=== PATIENT | female | born 1940 | race Caucasian/White ===

== ENCOUNTER 2018-11-12 09:42 | Outpatient (CLI) | payer MEDICARE ==
--- NOTE | 2018-11-14 10:14 | MMO ---
Bilateral MAMMO Bilat Screen [facility]. CLINICAL HISTORY: Patient is 78 years old and is seen for screening. The patient has no family history of breast cancer. The patient has no personal history of cancer. VIEWS: The views performed were: bilateral craniocaudal with tomosynthesis and bilateral mediolateral oblique with tomosynthesis. FILMS COMPARED: The present examination has been compared to prior imaging studies performed at [facility] on 02/19/2013 and 03/17/2013. MAMMOGRAM FINDINGS: There are scattered fibroglandular densities. There are stable benign appearing calcifications seen in both breasts. There are also vascular calcifications. There are no suspicious masses, suspicious calcifications, or new areas of architectural distortion. IMPRESSION: THERE IS NO MAMMOGRAPHIC EVIDENCE OF MALIGNANCY. A ROUTINE FOLLOW-UP MAMMOGRAM IN 1 YEAR IS RECOMMENDED. THE RESULTS OF THIS EXAM WERE SENT TO THE PATIENT. ACR BI-RADS Category 2 - Benign finding MAMMOGRAPHY NOTE: 1. A negative mammogram report should not delay a biopsy if a dominant of clinically suspicious mass is present. 2. Approximately 10% to 15% of breast cancers are not detected by mammography. 3. Adenosis and dense breasts may obscure an underlying neoplasm. Reported by: BENI BENAVIDES MD Electonically Signed: [id number]
== END 2018-11-12 09:43 | disposition home or self-care (01) ==
LOC: BICMAMMO 09:42
PROVIDERS: ATTEND Family Medicine
DX: Z12.31 Encounter for screening mammogram for malignant neoplasm of breast (principal)
CPT/HCPCS: 77063; 77067

== ENCOUNTER 2019-03-13 09:45 | Observation (INO) | payer MEDICARE ==
--- NOTE | 2019-03-13 10:24 | RAD ---
Portable chest: HISTORY: Dyspnea COMPARISON: 07/23/2016 FINDINGS:Heart size upper normal and stable. Aortic calcification is prominent. Vascular and intersti tial markings are upper normal. No focal infiltrate. No effusion. Calcified granuloma in the left lower lung again noted. IMPRESSION:Mild vascular and interstitial engorgement. No focal infiltrate.
[2019-03-13 10:38] LABS: #Eosinphils 0.1 thou/uL (0.0-0.7); #Lymphocytes 1.8 thou/uL (1.20-3.40); #Monocytes 0.5 thou/uL (0.11-0.59); #Neutrophils 3.6 thou/uL (1.40-6.50); %Basophils 0.4 % (0.0-1.0); %Eosinophils 1.3 % (0.0-10.0); %Lymphocytes 29.9 % (21.0-51.0); %Monocytes 8.2 % (0.0-10.0); %Neutrophils 60.2 % (42.0-75.0); Hemoglobin 13.4 g/dL (12.0-16.0); Mean Corpuscular HGB CONC 34.1 g/dL (32.0-36.0); Mean Corpuscular Hemoglobin 28.6 pg (27.0-31.0); Mean Corpuscular Volume 83.9 fL (78.0-98.0); Mean Platelet Volume 8.5 fL (7.4-10.4); Platelet Count 185 thou/uL (130-400); RBC Distribution Width 12.7 % (11.5-14.5); Red Blood Cell (RBC) Count 4.67 mill/uL (4.20-5.40); White Blood Cell (WBC) Count 5.9 thou/uL (4.8-10.8)
[2019-03-13 11:00] LABS: ALT (SGPT) 16 U/L (8-55); AST (SGOT) 21 U/L (5-34); Albumin 4.3 g/dL (3.4-4.8); Alkaline Phosphatase 62 U/L (40-110); Anion Gap 11 mmol/L (10-20); BUN (Urea Nitrogen) 14 mg/dL (9.8-20.1); Bilirubin, Total 0.4 mg/dL (0.2-1.2); CK (CPK) 68 U/L (29-168); Calc. Creatinine Clearance 0 mL/min (70-130); Calcium 9.7 mg/dL (7.8-10.44); Carbon Dioxide 29 mmol/L (23-31); Chloride 101 mmol/L (98-107); Estimated GFR-MDRD 79; Globulin 2.4 g/dL (2.4-3.5); Glucose 102 mg/dL (83-110); Potassium 3.4 mmol/L (3.5-5.1); Protein, Total 6.7 g/dL (6.0-8.3); Sodium 138 mmol/L (136-145)
--- NOTE | 2019-03-13 11:01 | CT ---
CTA chest with contrast: Multiple axial tomograms obtained through the chest following a pulmonary angiogram protocol with mul tiplanar reconstruction and 3-D postprocessing. INDICATIONS: Dyspnea and chest pain. Assess for pulmonary embolus. COMPARISON: None FINDINGS: Pulmonary arteries show adequate opacification. No evidence of pulmonary embolus identified. Thoracic aorta is not opacified and cannot be assessed for dissection. Atherosclerotic changes are no remigio. Mediastinum appears unremarkable. No adenopathy. Calcified left hilar lymph nodes. Lung garcia appear clear. No evidence of infiltrate or effusion. Scattered calcified nodules in the l eft lung. Images through the upper abdomen appear unremarkable. Soft tissues of the thorax appear unremarkable. Osseous structures of the thorax appear unremarkable. IMPRESSION: 1. No evidence of pulmonary embolus 2. No acute lung process.
[2019-03-13] MEDS ORDERED: Iopamidol 370 76% 100 ML VIAL ONE (12:09)
[2019-03-13 12:23] LABS: Bilirubin Negative (Negative); Blood, Urine Negative (Negative); Clarity Clear (Clear); Glucose, Urine (Dipstick) Normal (Negative); Leukocyte Negative Leu/uL (Negative); Nitrite Negative (Negative); Protein, Urine (Dipstick) Negative (Neg-Trace); Urobilinogen Normal mg/dL (Less than 2)
[2019-03-13] MEDS ORDERED: Nitroglycerin 0.4 MG TAB 1 EACH ONE (13:00)
--- NOTE | 2019-03-13 13:32 | HP ---
HISTORY OF PRESENT ILLNESS: Ms. Whitaker is an 78-year-old woman. She came to this facility earlier today with complaint of shortness of breath and chest pain, retrosternal, which radiates to her back. It is not associated with exertion. It is worse when she takes a deep inspiration. She is being admitted for evaluation and management. She denies any associated fever. She denies any coughing. PAST MEDICAL HISTORY: Remarkable for hypertension. She denies diabetes. She claims that she has some "irregular heartbeat." No other significant past medical history. Also, she has a history of chronic back ache. PAST SURGICAL HISTORY: Remarkable for hysterectomy, cholecystectomy, appendectomy, and bilateral cataract extraction. ALLERGIES: SHE DOES NOT HAVE ANY KNOWN ALLERGY. SOCIAL HISTORY: She smoked last time more than 50 years ago and she said that she was never a heavy smoker. She denies EtOH abuse. She denies substance abuse. FAMILY HISTORY: Reviewed and is not contributory. MEDICATIONS: At home, she was on; 1. Tylenol. 2. Amlodipine/valsartan. 3. Dexlansoprazole, which is Dexilant. 4. Diphenhydramine. 5. Fentanyl patch. 6. Hydrochlorothiazide. 7. Naproxen. REVIEW OF SYSTEMS: CONSTITUTIONAL: She denies any fever. Denies any weakness. HEENT: No headache. No ocular pain. No sore throat. No rhinorrhea. No earache. No epistaxis. NECK: No neck pain. No neck stiffness. CARDIOVASCULAR: Admit to shortness of breath. Chest pain as we mentioned earlier. PULMONARY: No coughing. GASTROINTESTINAL: No nausea. No vomiting. No diarrhea. No abdominal pain. GENITOURINARY: No dysuria. No hematuria. ENDOCRINOLOGY: No heat or cold intolerance. No polyuria, polydipsia, or polyphagia. MUSCULOSKELETAL: She has history of chronic back ache as we mentioned earlier. HEMATOLOGY: No abnormal bleeding. No ecchymosis. LYMPHATIC: No palpable lymphadenopathy. No painful lymphadenopathy. SKIN: No rash. No itching. ALLERGY: No hay fever. NEUROLOGICAL: No seizure. PSYCHIATRIC: She denies anxiety. Denies depression. PHYSICAL EXAMINATION: GENERAL: At the current time, she is alert, oriented, in no distress. VITAL SIGNS: Her latest vital signs show a temperature of 98.2, pulse rate 60, respiratory rate 20, and blood pressure 175/95. HEENT: Her head is normocephalic and atraumatic. Both her pupils are equal and reactive. Ears and nose, normal. Oral mucosa is moist. Pharyngeal area is clear. NECK: Supple. There is no distention of the jugular vein. No lymphadenopathy felt. Thyroid gland not palpable. There is no carotid bruit. CHEST: Symmetrical with regular S1 and S2. LUNGS: Clear. ABDOMEN: Soft. Bowel sounds heard. We could not appreciate any organomegaly. EXTREMITIES: Limbs show no edema. NEUROLOGIC: She moves all extremities. LABORATORY DATA: Her chemistry and lytes done today shows a sodium of 138, potassium 3.4, chloride 101, CO2 of 29, BUN 14, creatinine 0.71, glucose 102, calcium 9.7, total bilirubin 0.4, AST 21, ALT 16, alkaline phosphatase 62, CPK 68. Troponin 0.028, BNP 25.2, total protein 6.7, and albumin 4.3. CBC showed WBC of 5.9, hemoglobin of 13.4, hematocrit of 39.2, MCV of 83.9, and platelet of 185. Urinalysis is essentially normal with a pH of 7.5, specific gravity of 1.004. IMAGING DATA: Chest x-ray was reported to show mild vascular interstitial engorgement. No focal infiltrate. Heart size in the upper limit of normal. If there is also aortic calcification, CT angiogram of the chest was reported to show no acute lung process. No evidence of pulmonary embolism. ASSESSMENT AND PLAN: This is an 78-year-old woman with history of hypertension, who was admitted with shortness of breath and chest pain. EKG shows no acute abnormality. At this time, we will rule out myocardial infarction. We will put a consult for Cardiology. CO protocol is initiated. The patient will be admitted to telemetry for further evaluation and management will depend on the course of her hospitalization and her response to therapy. Job ID: [id number]
[2019-03-13] MEDS ORDERED: Acetaminophen 325 MG TAB PO PRN (14:07)
[2019-03-13] MEDS ORDERED: Ondansetron PF 4 MG/2 ML Vial IVP PRN (14:07)
[2019-03-13] MEDS ORDERED: Ondansetron ODT 4 MG TAB SL PRN (14:07)
[2019-03-13] MEDS ORDERED: Morphine 2 MG/ML SYRINGE SLOW IVP PRN (14:08)
[2019-03-13 14:12] VITALS: BMI 23.5
[2019-03-13] MEDS ORDERED: Nitroglycerin 0.4 MG TAB (25 Tab Bottle) SL PRN (14:14)
[2019-03-13] MEDS ORDERED: Aspirin Chewable 81 MG TAB PO SCH (14:15)
[2019-03-13 15:10] LABS: Free T4 (Free Thyroxine) 1.08 ng/dL (0.70-1.48); Thyroid Stimulating Hormone 1.3083 uIU/mL (0.35-4.94)
[2019-03-13 17:00] LABS: Troponin I Less than 0.010 ng/mL (< 0.028)
[2019-03-13] MEDS ORDERED: Amlodipine 5 MG TAB PO SCH (20:15)
[2019-03-13] MEDS ORDERED: Valsartan 80 MG TAB PO SCH (20:15)
[2019-03-13] MEDS: Atorvastatin Calcium 40 MG TAB PO SCH (20:38)
[2019-03-13] MEDS: Metoprolol Tartrate 25 MG TAB PO SCH (20:39)
[2019-03-13] MEDS: Temazepam 15 MG CAP PO PRN (20:40)
[2019-03-14] MEDS ORDERED: Aspirin 300 MG Suppository PR SCH (09:00)
[2019-03-14] MEDS: Amlodipine 5 MG TAB PO SCH ×2 (11:00→20:25)
[2019-03-14] MEDS: Metoprolol Tartrate 25 MG TAB PO SCH ×2 (11:01→20:11)
[2019-03-14] MEDS: Hydrochlorothiazide 25 MG TAB PO SCH (11:01)
[2019-03-14] MEDS: Enoxaparin Sodium 40 MG/0.4 ML SYRINGE SC SCH (11:01)
[2019-03-14] MEDS: Valsartan 80 MG TAB PO SCH ×2 (11:01→20:24)
--- NOTE | 2019-03-14 13:22 | NM ---
MYOCARDIAL PERFUSION EVALUATION: INDICATION: History of chest pain. RADIOPHARMACEUTICAL: 10.10 mCi Technetium 99m sestamibi IV with rest and 29.3 mCi Technetium 99m sestamibi IV with stress. FINDINGS: There is a predominantly fixed small defect involving the left ventricular apex on both the rest and stress images likely related to overlying osseous attenuation. There was normal wall motion and thic kening. The estimated LVEF is 82%. IMPRESSION: Probably normal myocardial perfusion evaluation. 1. There is a small predominantly fixed defect involving the left ventricular apex likely related to overlying soft tissue attenuation. 2. The estimated left ventricular ejection fraction of 82%. POS: CET
--- NOTE | 2019-03-14 14:30 | PDOC.HOSPP ---
- Subjective Encounter Date: 03/14/19 Encounter Time: 14:28 Subjective: +SOB & CP are less severe.. - Objective Vital Signs & Weight: Vital Signs (12 hours) Temp Pulse Resp BP Pulse Ox 03/14/19 12:45 98.2 F 61 16 174/75 H 99 03/14/19 07:42 97.6 F 55 L 15 143/65 H 99 03/14/19 04:05 97.2 F L 64 16 105/53 L 99 Weight Weight 123 lb 3.2 oz I&O: 03/13/19 03/14/19 03/15/19 06:59 06:59 06:59 Intake Total 740 Output Total 1000 Balance -260 Result Diagrams: 03/13/19 10:27 03/13/19 10:27 Hospitalist ROS - Medication Medications: Active Medications Generic Name Dose Route Start Last Admin Trade Name Freq PRN Reason Stop Dose Admin Amlodipine Besylate 5 mg 03/14/19 09:00 03/14/19 11:00 Norvasc PO Not Given DAILY [facility] Aspirin 300 mg 03/14/19 09:00 03/14/19 11:01 Aspirin WA Not Given DAILY DANA Atorvastatin Calcium 40 mg 03/13/19 21:00 03/13/19 20:38 Lipitor PO 40 mg HS DANA Administration Enoxaparin Sodium 40 mg 03/14/19 09:00 03/14/19 11:01 Lovenox SC Not Given 0900 DANA Hydrochlorothiazide 25 mg 03/14/19 09:00 03/14/19 11:01 Hydrochlorothiazide PO Not Given DAILY [facility] Metoprolol Tartrate 12.5 mg 03/13/19 21:00 03/14/19 11:01 Lopressor PO Not Given BID DANA Temazepam 15 mg 03/13/19 20:03 03/13/19 20:40 Restoril PO 15 mg HSPRN PRN Administration Insomnia Valsartan 160 mg 03/14/19 09:00 03/14/19 11:01 Diovan PO Not Given DAILY [facility] - Exam Neck: no JVD Heart: RRR Respiratory: CTAB Gastrointestinal: soft Extremities: no edema Neurological: no weakness Psychiatric: normal affect, A&O x 3 Hosp A/P (1) Shortness of breath Code(s): R06.02 - SHORTNESS OF BREATH Status: Acute (2) Chest pain Code(s): R07.9 - CHEST PAIN, UNSPECIFIED Status: Acute (3) HTN (hypertension) Code(s): I10 - ESSENTIAL (PRIMARY) HYPERTENSION Status: Acute - Plan Cardiac enzymes reviewed. Stress test shows fixed apical defect. CT angio negative.. Check echo.
[2019-03-14] MEDS: Famotidine 20 MG TAB PO SCH (14:43)
[2019-03-14] MEDS ORDERED: ADENOSINE 60 MG/20 ML VIAL ONE (15:55)
[2019-03-14] MEDS ORDERED: Lidocaine 2% Viscous Solution 10 ML, Aluminum & Magnesium Hydroxide 30 ML SSW PRN (19:46)
[2019-03-14] MEDS: Atorvastatin Calcium 40 MG TAB PO SCH (20:25)
[2019-03-14] MEDS: Temazepam 15 MG CAP PO PRN (20:27)
[2019-03-15 08:34] VITALS: BP 148/67; TEMP 97.8
[2019-03-15] MEDS ORDERED: Aspirin 325 MG TAB PO SCH (09:00)
[2019-03-15] MEDS: Metoprolol Tartrate 25 MG TAB PO SCH (09:31)
[2019-03-15] MEDS: Hydrochlorothiazide 25 MG TAB PO SCH (09:31)
[2019-03-15] MEDS: Famotidine 20 MG TAB PO SCH (09:31)
[2019-03-15] MEDS: Enoxaparin Sodium 40 MG/0.4 ML SYRINGE SC SCH ×2 (09:32→09:39)
--- NOTE | 2019-03-15 16:16 | DIS ---
DATE OF ADMISSION: 03/13/2019 DATE OF DISCHARGE: 03/15/2019 PRIMARY CARE PROVIDER: Reggie Moncada MD DISPOSITION: Discharged home. FINAL DIAGNOSES: Pleuritis, pleurisy, hypertension, and shortness of breath. DISCHARGE MEDICATIONS: 1. Ambien 5 mg at bedtime. 2. Nucynta 50 mg a day. 3. Dexilant 60 mg a day. 4. Amlodipine/valsartan 5/160 one daily. 5. Hydrochlorothiazide 25 mg a day. ALLERGIES: LYRICA. DIET: Heart healthy. CODE STATUS: Full. PENDING AT TIME OF DISCHARGE: Nothing. HOSPITAL COURSE: The patient admitted with pleuritic chest pain, shortness of breath. EKG was unrevealing for acute ST-T abnormality. CT angiogram revealed no pulmonary embolism. Admitting laboratory; CBC was normal. Comprehensive metabolic profile was normal except for a potassium of 3, 4. Cardiac enzymes were normal x3. BNP was 25. Nuclear medicine stress test revealed a fixed defect, thought to be due to body habitus. No reversibility. EF estimated at 82% and I examined the patient today, she was pain-free. Vital signs were stable. Cardiorespiratory exam was normal. She is discharged to home on home medicines. She has been asked to see her PCP in followup in 7 days. Job ID: [id number]
[2019-03-15] MEDS ORDERED: Zolpidem Tartrate 5 MG TAB PO SCH (21:00)
[2019-03-15] MEDS ORDERED: Amlodipine 5 MG TAB PO SCH (21:00)
[2019-03-15] MEDS ORDERED: Valsartan 80 MG TAB PO SCH (21:00)
[2019-03-16] MEDS ORDERED: TAPENTADOL HCL 50 MG PO SCH (09:00)
== END 2019-03-15 12:28 | disposition home or self-care (01) ==
LOC: ERS 09:45 → 2SW 14:03
PROVIDERS: ADMIT Hospitalist; ATTEND Hospitalist
DX: R09.1 Pleurisy (principal); R06.02 Shortness of breath; I10 Essential (primary) hypertension; E78.00 Pure hypercholesterolemia, unspecified; E78.5 Hyperlipidemia, unspecified; G89.29 Other chronic pain; M54.9 Dorsalgia, unspecified; Z79.899 Other long term (current) drug therapy; Z87.891 Personal history of nicotine dependence; Z88.8 Allergy status to other drugs, medicaments and biological substances
CPT/HCPCS: 71045; 71275; 78452; 81003; 82550; 83880; 84439; 84484 ×2; 87804 ×2; 93005; 93017; 93306; 94760; 96372; 99285; A9500; G0378 ×3; 36415; 80053; 84443; 85025; J0153; J1650; Q9967

== ENCOUNTER 2019-08-09 11:19 | Inpatient (IN) | payer MEDICARE, OTHER ==
[~2019-08-09 11:19] MED LIST: Heparin 10,000 UNITS/ 10 ML VIAL ONE; Iopamidol 370 76% 100 ML VIAL ONE; Nitroglycerin 0.4 MG TAB (25 Tab Bottle) ONE
[2019-08-09 11:46] LABS: #Basophils 0.1 thou/uL (0.0-0.2); #Eosinphils 0.1 thou/uL (0.0-0.7); %Basophils 0.5 % (0.0-1.0); %Eosinophils 0.5 % (0.0-10.0); %Lymphocytes 16.1 % (21.0-51.0); %Monocytes 8.2 % (0.0-10.0); %Neutrophils 74.7 % (42.0-75.0); Mean Corpuscular HGB CONC 33.2 g/dL (32.0-36.0); Mean Corpuscular Hemoglobin 28.8 pg (27.0-31.0); Mean Corpuscular Volume 86.8 fL (78.0-98.0); Mean Platelet Volume 8.3 fL (7.4-10.4); Platelet Count 194 thou/uL (130-400); RBC Distribution Width 13.1 % (11.5-14.5); Red Blood Cell (RBC) Count 5.19 mill/uL (4.20-5.40); White Blood Cell (WBC) Count 12.1 thou/uL (4.8-10.8)
[2019-08-09 12:09] LABS: ALT (SGPT) 33 U/L (8-55); AST (SGOT) 155 U/L (5-34); Albumin 4.3 g/dL (3.4-4.8); Alkaline Phosphatase 64 U/L (40-110); Anion Gap 14 mmol/L (10-20); BUN (Urea Nitrogen) 12 mg/dL (9.8-20.1); Bilirubin, Total 0.4 mg/dL (0.2-1.2); Calc. Creatinine Clearance 0 mL/min (70-130); Calcium 9.8 mg/dL (7.8-10.44); Carbon Dioxide 28 mmol/L (23-31); Chloride 98 mmol/L (98-107); Estimated GFR-MDRD 81; Globulin 2.8 g/dL (2.4-3.5); Glucose 109 mg/dL (83-110); Potassium 3.2 mmol/L (3.5-5.1); Protein, Total 7.1 g/dL (6.0-8.3); Sodium 137 mmol/L (136-145)
--- NOTE | 2019-08-09 12:32 | RAD ---
PORTABLE CHEST: HISTORY: Chest pain that started last night. COMPARISON: 03/13/2019 study. FINDINGS: Heart size is within normal limits. There are arthrosclerotic changes of the aorta. The bones appea r demineralized. IMPRESSION: No active intrathoracic disease. POS: ROXANA
[2019-08-09] MEDS ORDERED: Heparin 10,000 UNITS/1 ML VIAL ONE (12:33)
[2019-08-09] MEDS ORDERED: Verapamil 5 MG/2 ML VIAL ONE (12:33)
[2019-08-09] MEDS ORDERED: Nitroglycerin 100MG/250ML BOT 250 ML ONE (12:33)
[2019-08-09 12:36] LABS: CKMB 163.7 ng/mL (0-6.6)
[2019-08-09] MEDS ORDERED: Morphine 2 MG/ML SYRINGE ONE (12:41)
[2019-08-09] MEDS ORDERED: Midazolam HCl 2 mg/2 ml Vial ONE (12:42)
[2019-08-09] MEDS ORDERED: Acetaminophen/Codeine 30-300mg Tablet PO PRN ×2 (13:37)
[2019-08-09] MEDS ORDERED: Sodium Chloride 0.9% 200 ML IV PRN (13:37)
[2019-08-09] MEDS ORDERED: Nitroglycerin 0.4 MG TAB (25 Tab Bottle) SL PRN (13:37)
[2019-08-09] MEDS ORDERED: Nitroglycerin 50 MG/250 ML BOT 250 ML IVPB SCH (13:45)
[2019-08-09] MEDS ORDERED: Heparin 10,000 UNITS/ 10 ML VIAL SLOW IVP SCH (13:45)
[2019-08-09] MEDS ORDERED: Heparin 25,000 units/D5W 500 ML IVPB SCH (13:45)
[2019-08-09] MEDS: Morphine 2 MG/ML SYRINGE SLOW IVP PRN ×3 (14:05→23:36)
[2019-08-09 14:11] LABS: Hemoglobin 14.1 g/dL (12.0-16.0); Platelet Count 176 thou/uL (130-400)
[2019-08-09 14:32] LABS: PTT 212.1 SEC (22.9-36.1)
[2019-08-09 14:36] LABS: Troponin I 23.793 ng/mL (< 0.028)
[2019-08-09] MEDS ORDERED: [UNRECOGNIZED DRUG - REMARK] FS SCH (14:47)
[2019-08-09] MEDS: ALPRAZolam 0.25 MG TAB PO PRN ×2 (15:08→20:21)
[2019-08-09 17:26] LABS: Critical Call Chem Troponin I RESULT DECREASING; Troponin I 22.121 ng/mL (< 0.028)
--- NOTE | 2019-08-09 19:40 | HP ---
INDICATION FOR ADMISSION: Acute inferior myocardial infarction. HISTORY OF PRESENT ILLNESS: This very pleasant 78-year-old female was seen back in February 2019 complaining of chest pain. She had negative enzymes at that time. She underwent stress testing, was found to have no evidence of ischemia on a stress test and she was advised to be seen just as needed on outpatient basis. 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 She did see Dr. Jackson and underwent cardiac catheterization many years ago and was found to have normal coronary arteries at least according to the patient. She has been doing well, but then yesterday evening, she had had some ice cream and some chocolate and noticed that she was starting to get some anterior chest pain, which radiates somewhat to the right side, that went down the left arm. She has some abdominal discomfort. She has some nausea, but no vomiting. She had no diaphoresis. She describes her pain at the worst of being 7/10. She comes to the emergency room, still having chest pain 6/10. EKG does show some slight irregularities with some mild ST-segment elevation in the inferior leads with some nonspecific ST-segment changes. She continues to have some chest discomfort. She has been given 3000 units of heparin. She was given nitroglycerin and she still continues to have some discomfort. Her cardiac enzymes are positive for myocardial infarction. Her troponin I is 21, and I have advised her that most likely she will best be served by undergoing a cardiac catheterization to evaluate the coronary artery status as soon as possible. Her troponin I is 21.1. BNP was only 317. Her other laboratory data did not show any gross abnormalities. WBC is 12.1 with a hemoglobin of 15. PAST MEDICAL HISTORY: Significant for hypertension. She has had some occasional palpitations in the past. This is one of the reason she underwent cardiac catheterization by Dr. Jackson, but this has been stable. She has chronic back pain. She takes medication. She has had a hysterectomy, cholecystectomy, appendectomy, bilateral cataract surgery. ALLERGIES: SHE SAYS SHE IS ALLERGIC TO LYRICA. MEDICATIONS: 1. Tylenol. 2. Amlodipine/valsartan. 3. Dexilant. 4. Diphenhydramine. 5. Fentanyl patch for back pain. 6. Hydrochlorothiazide. 7. Naprosyn. REVIEW OF SYSTEMS: A 12-point review of systems is positive for chronic back pain. She also has occasional diarrhea, for which she sees Dr. Del Real I believe. Otherwise, review of systems is relatively unremarkable. PHYSICAL EXAMINATION: GENERAL: Reveals an elderly female, who is in no acute distress, but does appear to be uncomfortable, still complains of some chest discomfort. VITAL SIGNS: Her blood pressure is 156/82, heart rate is 57 and shows a sinus rhythm, respiratory rate is 15, and O2 saturation is 100%. HEENT: Shows the head to be normocephalic and atraumatic. Carotid pulses are present. There are no bruits. CHEST: Her chest is actually clear to auscultation without rales, rhonchi or wheezing. CARDIOVASCULAR: Regular rate and rhythm. She has normal S1 and S2. I do not hear any significant S3 or S4. There were no significant murmurs, heaves, thrills, bruits or rubs. ABDOMEN: Soft and nontender. Positive bowel sounds are present. She did have some lateral chest wall tenderness over the area where she is having some chest pain. This is painful to palpation. EXTREMITIES: No clubbing, cyanosis or edema. All pulses are present, pedal as well as brachial and radial. NEUROLOGIC: She appears to be grossly intact. There were no gross focal motor deficits. SKIN: Warm and dry. DIAGNOSTIC STUDIES: EKG shows a sinus rhythm with evidence of slight ST-segment elevation in the inferior leads, but with the abnormality in the cardiac enzymes, it appears that she is having an inferior myocardial infarction which may have started yesterday p.m. I have advised her that she needs to undergo a cardiac catheterization. I have explained to her the procedure and the risks to include bleeding, infection, possibility of myocardial infarction, CVA, renal insufficiency, allergic contrast reaction, and even the possibility of . She understands and agrees to proceed. We will plan for emergent cardiac catheterization. She has no history of recent fevers, congestion or any contact with COVID patients that she is aware of. Job ID: [id number]
[2019-08-09] MEDS: Metoprolol Tartrate 25 MG TAB PO SCH (20:14)
[2019-08-09] MEDS ORDERED: Atorvastatin Calcium 40 MG TAB PO SCH (21:00)
--- NOTE | 2019-08-09 21:52 | CON ---
DATE OF CONSULTATION: HISTORY OF PRESENT ILLNESS: This is an 78-year-old female, who lives at [facility], being with a daughter who lives in the [place] area. She developed chest pain that radiated into her left arm about 6:00 p.m. yesterday, which is almost 20 hours ago and has persisted throughout the night such that she was unable to sleep. She called the [facility] nurse practitioner, who recommended an ambulance and the patient came here about 11 o'clock, where she was found to have a troponin of 21 with a CPK-MB of 163. Her EKG showed some EKG changes suggesting an inferior injury and she was taken to the ship[facility] lab[facility]. Her right coronary artery had a large acute marginal that may actually go down in service, the inferior aspect of her heart. The main right coronary artery then tapered down to a very small branch and there was no collateral filling to any other distal vessel on the inferior surface of the heart. Left-sided injections revealed moderate LAD disease of about 50% or so and at least two areas including the origin and mid LAD, the circumflex consisted of 2 small branches with proximal stenosis, but neither appeared large enough to graft and there was a ramus branch with a significant proximal lesion that was not felt to be stentable. Left ventricular systolic function on the LV-gram appeared relatively good and cardiac echo is pending. She was not felt to be able to be stented in regard to the ramus due to its proximity to the left main and her right coronary artery was not specifically addressed. PAST MEDICAL HISTORY: Includes hypertension, well controlled per patient. She has no known elevated cholesterol level, no diabetes, mellitus and is a nonsmoker. REVIEW OF SYSTEMS: Significant for chronic back pain, followed by Dr. Tobar. She has had implant stimulator placed in her back. She has also had a previous cholecystectomy and hysterectomy. PHYSICAL EXAMINATION: GENERAL: On examination, she is alert, cooperative lady, 115 pounds, 5 feet 1 inch, somewhat anxious, but alert and cooperative. NECK: No carotid bruits (negative carotid ultrasound in the past). LUNGS: Clear to auscultation. CARDIAC: Regular rhythm at 73 with no ectopy at this time, although she did have ectopy during her cardiac catheterization. She has a blood pressure of 145 on IV heparin infusion. ABDOMEN: Soft and nontender. EXTREMITIES: She has palpable pedal pulses. PLAN: At this time is for coronary artery bypass grafting in the morning to the LAD, ramus, possibly something on the right and I have discussed this with the patient as well as with Krystal and informed consent has been obtained. Job ID: [id number]
[2019-08-10 04:30] LABS: Cardiac Risk 4.3 (Less than 4.5)
[2019-08-10] MEDS: Metoprolol Tartrate 25 MG TAB PO SCH (05:46)
[2019-08-10] MEDS ORDERED: Fentanyl 100 MCG/2 ML VIAL ONE (06:33)
[2019-08-10] MEDS ORDERED: Midazolam HCl 5 mg/5 ml Vial ONE (06:33)
[2019-08-10] MEDS ORDERED: Midazolam HCl 2 mg/2 ml Vial ONE (06:33)
[2019-08-10] MEDS ORDERED: Vecuronium 10 MG VIAL ONE ×2 (06:33→10:15)
[2019-08-10] MEDS ORDERED: Dexmedetomidine 200 MCG/2 ML VIAL ONE (06:33)
[2019-08-10] MEDS ORDERED: Albumin 5% 500 ML ONE ×2 (06:34→11:30)
[2019-08-10] MEDS ORDERED: Heparin 10,000 UNITS/1 ML VIAL 30,000 UNITS in Sodium Chloride 0.9% 1,000 ML FS SCH (06:45)
[2019-08-10] MEDS ORDERED: PHENYLEPHRINE-NS 100 MCG/ML 10 ML SYRINGE ONE ×2 (08:49→10:15)
[2019-08-10] MEDS ORDERED: EPINEPHrine 1 MG/10 ML Abboject SYRINGE ONE (09:24)
[2019-08-10] MEDS ORDERED: Atropine Sulfate 1 mg/10 ml Syringe ONE (09:24)
[2019-08-10] MEDS ORDERED: Sodium Bicarb 50 MEQ/50 ML Abboject 8.4% SYRINGE ONE ×3 (09:24→10:15)
[2019-08-10] MEDS ORDERED: CEFAZOLIN 1 GM VIAL ONE (09:53)
[2019-08-10] MEDS ORDERED: Ondansetron PF 4 MG/2 ML Vial ONE (10:15)
[2019-08-10] MEDS ORDERED: Cardioplegic Soln 1,000 ML BAG ONE (10:15)
[2019-08-10] MEDS ORDERED: Glycopyrrolate 0.2 MG/ML 5 ML SYRINGE ONE (10:15)
[2019-08-10] MEDS ORDERED: Magnesium Sulfate 1 GM/2 ML VIAL ONE ×2 (10:15)
[2019-08-10] MEDS ORDERED: Thrombin 5000 UNITS/5 ML VIAL ONE (10:15)
[2019-08-10] MEDS ORDERED: PROPOFOL 200 MG/20 ML VIAL ONE (10:15)
[2019-08-10] MEDS ORDERED: Protamine Sulfate 50 MG/5 ML VIAL ONE (10:15)
[2019-08-10] MEDS ORDERED: Calcium Chloride 1 GM/10 ML Abboject SYRINGE ONE (10:15)
[2019-08-10] MEDS ORDERED: Lidocaine 2% PF 5 ML VIAL ONE ×2 (10:15)
[2019-08-10] MEDS ORDERED: Heparin 30,000 units/30 ml VIAL ONE ×2 (10:15)
[2019-08-10] MEDS ORDERED: Rocuronium Bromide 10 MG/ML (10ML VIAL) ONE (10:15)
[2019-08-10] MEDS ORDERED: Papaverine 60 MG/2 ML VIAL ONE (10:15)
[2019-08-10] MEDS ORDERED: EPHEDRINE 25 MG/5 ML SYRINGE ONE (10:15)
[2019-08-10] MEDS ORDERED: Potassium Chloride 60 MEQ/30 ML VIAL ONE ×2 (10:15)
[2019-08-10] MEDS ORDERED: Lidocaine 1% PF 5 ML VIAL ONE ×2 (10:15)
[2019-08-10] MEDS ORDERED: Nitroglycerin 50 MG/250 ML BOT ONE (10:15)
[2019-08-10] MEDS ORDERED: Ketorolac Tromethamine 30 MG/ML VIAL ONE (10:15)
[2019-08-10] MEDS ORDERED: Aminocaproic Acid 5 GM/20 ML VIAL ONE ×2 (10:15)
[2019-08-10] MEDS ORDERED: Heparin 5,000 UNITS/ML VIAL ONE (10:15)
[2019-08-10] MEDS ORDERED: Dexamethasone 20 MG/5 ML VIAL ONE (10:15)
[2019-08-10] MEDS ORDERED: DOPamine 400 MG/D5W 250 ML 250 ML ONE (10:46)
[2019-08-10] MEDS ORDERED: Albumin 5% 250 ML ONE (10:52)
[2019-08-10] MEDS ORDERED: EPINEPHrine 1 MG, Admixture Fee 1 EACH in Dextrose 5% in Water 250 ML IVPB SCH (11:15)
[2019-08-10 11:20] LABS: Actual Bicarbonate (HCO3a) 19.9 mEq/L (22-28); Analyzer IN Cardio ER; Base Excess (BEa) -7.5 mEq/L (-2.0 to +3.0); CO2 Tension 48.6 mmHg (35.0-45.0); Calcium, Ionized 1.07 mmol/L (1.12-1.30); Carboxyhemoglobin (COHb) 0.3 gm% (0.0-3.0); O2 Tension (PaO2) 65.5 mmHg (> 60.0)
[2019-08-10 11:24] LABS: Puncture Site LINE; pH, Arterial 7.23 (7.35-7.45)
--- NOTE | 2019-08-10 11:30 | OP ---
DATE OF PROCEDURE: 08/10/2019 PREOPERATIVE DIAGNOSES: Coronary artery disease, status post myocardial infarction. PROCEDURES PERFORMED: Coronary artery bypass graft x2, left internal mammary artery to the LAD that was 2 mm saphenous vein graft, good quality to a 1.5 mm ramus branch. DENTAL LAB TECHNICIAN: Dr. Curiel. TRANSFUSION: None. DESCRIPTION OF PROCEDURE: After adequate anesthesia had been obtained, Dr. Curiel did an endovascular vein harvest of the left greater saphenous vein while I performed a median sternotomy. The right pleura was entered during sternotomy and the left pleura was entered during mammary artery harvest in one small area. After mammary harvesting, the patient was heparinized, mammary divided distally and passed posterior to the thymus gland. The pericardium was incised to minimize the distance to the LAD. Aorta and right atrium were cannulated. Cardiopulmonary bypass begun. The patient had moderate left ventricular hypertrophy. The right coronary system was examined and the distal right coronary artery that was occluded on catheterization was examined and felt to be too small a vessel to justify grafting with a completed infarct. The aorta was cross clamped and after 800 mL of [place] cardioplegic solution, the ramus was opened initially and an end-to-side anastomosis completed, passing a 1.5 mm probe proximally and distally prior to tying the suture line. Following this, the LAD was opened and the mammary artery anastomosed here. The cross-clamp was removed and a single proximal anastomosis performed on the aortic root and marked with a ring. The patient was then weaned from cardiopulmonary bypass. Cannula was removed and protamine was given systemically. Aortic cannulation site was secured with a 4-0 Prolene suture, following which the sternum was reapproximated over mediastinal and bilateral pleural drains using #7 interrupted wire. Vancomycin paste was used on the sternal edges, platelet rich blood and platelet poor plasma. Subcutaneous tissue and skin were closed in layers, and the patient is to be taken to the ICU in guarded condition. Job ID: [id number]
--- NOTE | 2019-08-10 11:36 | RAD ---
Chest one view HISTORY: Chest surgery. COMPARISON: 08/09/2019. FINDINGS: Cardiac silhouette is magnified by projection. Pulmonary vasculature upper limits of normal . Mediastinum is rotated leftward with the patient. There is calcification throughout the arterial stru ctures. Drains overlie the mediastinum. Bilateral thoracostomy tubes are directed towards the apices. Tip of a right subclavian central venous catheter overlies the right atrium. radiation monitor leads overlie the chest. No evidence of pneumothorax. Mild atelectasis at the lung bases, left greater than right. Defibrillator patches over the right chest and left upper abdomen. IMPRESSION : Interval postoperative changes of the mediastinum with lines and tubes as detailed above.
[2019-08-10] MEDS ORDERED: Bisacodyl 10 MG SUPP PR PRN (11:56)
[2019-08-10] MEDS ORDERED: Promethazine HCl 25 MG/ML VIAL IM PRN (11:56)
[2019-08-10] MEDS ORDERED: Nitroglycerin 50 MG/250 ML BOT 250 ML IVPB PRN (11:56)
[2019-08-10] MEDS ORDERED: Morphine 2 MG/ML SYRINGE SLOW IVP PRN (11:56)
[2019-08-10] MEDS ORDERED: Magnesium 2 GM/50 ML 2 GM in Premix Bag 1 BAG IVPB SCH (11:56)
[2019-08-10] MEDS ORDERED: Ondansetron PF 4 MG/2 ML Vial IVP PRN (11:56)
[2019-08-10] MEDS ORDERED: Fentanyl 100 MCG/2 ML VIAL SLOW IVP PRN ×2 (11:56)
[2019-08-10] MEDS ORDERED: Acetaminophen 325 MG TAB PO PRN (11:56)
[2019-08-10] MEDS ORDERED: Hetastarch 6% 500 ML 500 ML IVPB PRN (11:56)
[2019-08-10] MEDS ORDERED: niCARdipine 25 MG in Sodium Chloride 0.9% 250 ML 240 ML IVPB PRN (11:56)
[2019-08-10] MEDS ORDERED: Mag-Al 1200 mg/1200 mg/30 ML UDCUP PO PRN (11:56)
[2019-08-10] MEDS ORDERED: HYDROcodone/Acetaminophen 5/325 mg Tablet PO PRN (11:56)
[2019-08-10] MEDS ORDERED: DOPamine 400 MG/D5W 250 ML 250 ML IVPB PRN (11:56)
[2019-08-10] MEDS ORDERED: Post-Op Insulin Drip Protocol IVPB ONE (11:56)
[2019-08-10] MEDS ORDERED: Guaifenesin DM 100-10/5 ML UDCUP PO PRN (11:56)
[2019-08-10] MEDS ORDERED: Bisacodyl 5 MG TAB PO PRN (11:56)
[2019-08-10] MEDS ORDERED: Norepinephrine 8 MG/0.9% NS 250 ML IVPB PRN (11:56)
[2019-08-10] MEDS ORDERED: hydrALAZINE 20 MG/ML VIAL SLOW IVP PRN (11:56)
[2019-08-10] MEDS ORDERED: HUMULIN R 100 UNITS in Sodium Chloride 0.9% 100 ML IVPB SCH (12:12)
[2019-08-10] MEDS ORDERED: Dextrose 50% Abboject 50 ML SYRINGE SLOW IVP PRN (12:12)
[2019-08-10] MEDS ORDERED: Insulin Regular 300 UNITS/3 ML VIAL SC PRN (12:12)
[2019-08-10] MEDS ORDERED: Dextrose 5% in Water 1,000 ML IV PRN (12:12)
[2019-08-10 12:15] LABS: Red Blood Cell (RBC) Count 3.35 mill/uL (4.20-5.40); White Blood Cell (WBC) Count 14.8 thou/uL (4.8-10.8)
[2019-08-10 12:16] LABS: Hemoglobin 9.9 g/dL (12.0-16.0); Mean Corpuscular Hemoglobin 29.6 pg (27.0-31.0); Mean Corpuscular Volume 89.8 fL (78.0-98.0); Mean Platelet Volume 9.3 fL (7.4-10.4); Platelet Count 105 thou/uL (130-400); RBC Distribution Width 12.9 % (11.5-14.5)
[2019-08-10 12:17] LABS: #Eosinphils 0.1 thou/uL (0.0-0.7); #Monocytes 1.1 thou/uL (0.11-0.59); #Neutrophils 11.9 thou/uL (1.40-6.50); %Eosinophils 0.4 % (0.0-10.0); %Lymphocytes 11.7 % (21.0-51.0); %Monocytes 7.5 % (0.0-10.0); %Neutrophils 80.4 % (42.0-75.0); MDiff Complete? YES
[2019-08-10 12:33] LABS: INR-International Normal Ratio 1.5; PTT 40.2 SEC (22.9-36.1)
[2019-08-10 12:36] LABS: Elliptocytes SLIGHT = 2-5 cells (100X) (0-1/hpf); Platelet Morphology Comment Appears Decreased
[2019-08-10 12:37] LABS: BUN (Urea Nitrogen) 8 mg/dL (9.8-20.1); Calc. Creatinine Clearance 58 mL/min (70-130); Estimated GFR-MDRD 89
[2019-08-10 12:40] LABS: Anion Gap 10 mmol/L (10-20); Calcium 7.3 mg/dL (7.8-10.44); Carbon Dioxide 22 mmol/L (23-31); Chloride 107 mmol/L (98-107); Glucose 161 mg/dL (83-110); Potassium 2.9 mmol/L (3.5-5.1); Sodium 136 mmol/L (136-145)
[2019-08-10 13:10] LABS: Actual Bicarbonate (HCO3a) 15.1 mEq/L (22-28); Base Excess (BEa) -8.8 mEq/L (-2.0 to +3.0); CO2 Tension 26.5 mmHg (35.0-45.0); Calcium, Ionized 1.04 mmol/L (1.12-1.30); Carboxyhemoglobin (COHb) 0.6 gm% (0.0-3.0); O2 Tension (PaO2) 97.2 mmHg (> 60.0); pH, Arterial 7.37 (7.35-7.45)
[2019-08-10 13:12] LABS: ALV-art Gradient 297.475 (0-20); Puncture Site LINE
[2019-08-10 13:22] LABS: Hemoglobin 10.7 g/dL (12.0-16.0); Mean Corpuscular HGB CONC 33.4 g/dL (32.0-36.0); Mean Corpuscular Hemoglobin 29.6 pg (27.0-31.0); Mean Corpuscular Volume 88.8 fL (78.0-98.0); RBC Distribution Width 13.1 % (11.5-14.5); Red Blood Cell (RBC) Count 3.61 mill/uL (4.20-5.40); White Blood Cell (WBC) Count 13.6 thou/uL (4.8-10.8)
[2019-08-10 13:24] LABS: INR-International Normal Ratio 1.4; PTT 67.4 SEC (22.9-36.1); Prothrombin Time 17.2 SEC (12.0-14.7)
--- NOTE | 2019-08-10 13:29 | OP ---
DATE OF PROCEDURE: 08/10/2019 PREOPERATIVE DIAGNOSIS: Complete heart block with hypotension unresponsive to drugs. PROCEDURES PERFORMED: Mediastinal re-exploration, repeat transesophageal echocardiography, placement of temporary pacing wires. VENDING ATTENDANT: Farooq Curiel MD TRANSFUSION: None. ESTIMATED BLOOD LOSS: Minimal. DESCRIPTION OF PROCEDURE: After adequate anesthesia had been obtained, the patient was prepped and draped and previous sternal incision reopened. Wires were removed. There was no blood accumulated at all in the mediastinum. Heart was beating and appeared to be normal as far as appearance of the right atrium and right ventricle besides the heart block. The vein graft was normal in appearance with a good pulse and the DEVI graft lie nicely in the pericardium. Temporary atrial and ventricular pacing wires were placed and while these were being done, she resumed normal sinus rhythm and then back into heart block. The area was thoroughly irrigated and transesophageal echo showed an EF of 65%. The sternum was reclosed with #7 wire using vancomycin paste on the sternal edges. Subcutaneous tissue and skin were closed in layers. Job ID: [id number]
[2019-08-10 13:40] LABS: #Eosinphils 0.1 thou/uL (0.0-0.7); #Lymphocytes 0.9 thou/uL (1.20-3.40); #Monocytes 0.7 thou/uL (0.11-0.59); %Eosinophils 0.4 % (0.0-10.0); %Lymphocytes 6.3 % (21.0-51.0); %Monocytes 4.8 % (0.0-10.0); %Neutrophils 88.4 % (42.0-75.0); Anion Gap 16 mmol/L (10-20); BUN (Urea Nitrogen) 7 mg/dL (9.8-20.1); Calc. Creatinine Clearance 59 mL/min (70-130); Calcium 7.2 mg/dL (7.8-10.44); Carbon Dioxide 16 mmol/L (23-31); Chloride 109 mmol/L (98-107); Estimated GFR-MDRD Greater than 90; Glucose 235 mg/dL (83-110); Mean Platelet Volume 8.8 fL (7.4-10.4); Platelet Count 100 thou/uL (130-400); Sodium 138 mmol/L (136-145)
[2019-08-10 13:42] LABS: Potassium 2.5 mmol/L (3.5-5.1)
[2019-08-10] MEDS: Potassium Chloride 20 MEQ/100 ML PREMIX BAG IVPB PRN ×2 (13:45→18:49)
--- NOTE | 2019-08-10 13:57 | RAD ---
PORTABLE CHEST 1 VIEW: DATE: 08/10/2019. TIME: 12:33 PM. HISTORY: Post open heart surgery. COMPARISON: Earlier exam of 11:25 a.m. from the same date. FINDINGS: Interval placement of endotracheal tube is seen with tip about 15 mm above the level of the zan. A nasogastric tube has been placed and can be traced into the stomach with tip excluded from the film . The remainder of the exam is otherwise stable. POS: [facility]
--- NOTE | 2019-08-10 14:37 | CON ---
DATE OF CONSULTATION: 08/10/2019 HISTORY OF PRESENT ILLNESS: Ms. Whitaker is an 78-year-old female, who underwent heart surgery this morning. She went back to the operating room when she developed heart block. She had pacing wires placed. Mediastinal re-exploration was performed. No bleeding was identified. Atrial and ventricular leads are in place now. She is completely paced. She will wean per protocol. PAST MEDICAL HISTORY: Remarkable for: 1. Hypertension. 2. History of chronic pain involving her back. 3. Status post hysterectomy. 4. Status post cholecystectomy. 5. History of cataract surgery. 6. Status post appendectomy. ALLERGIES: SHE REPORTS INTOLERANCE TO LYRICA. SOCIAL HISTORY: She is a nonsmoker and nondrinker. FAMILY HISTORY: Negative for lung disease in early age. REVIEW OF SYSTEMS: Not obtainable. PHYSICAL EXAMINATION: GENERAL: She is paced. She appears little older than her age. VITAL SIGNS: Heart rate is 80, blood pressure 82/54, respiratory rate in the 20s. HEAD AND NECK: Unremarkable. LUNGS: Remarkable for equal breath sounds. HEART: Regular rhythm. ABDOMEN: Soft. EXTREMITIES: Without clubbing, cyanosis, or edema. LABORATORY DATA: Chest x-ray done postoperatively shows proper placement of endotracheal tube. No pulmonary edema. IMPRESSION: 1. Heart block in the perioperative period, now paced. 2. Status post coronary artery bypass grafting with clinically patent grafts and no bleeding. Hopefully, she will wean per protocol. Critical care time 30 min. Job ID: [id number] MTDD
[2019-08-10] MEDS ORDERED: Sodium Chloride 0.9% 250 ML IV SCH (16:30)
[2019-08-10] MEDS ORDERED: Sodium Chloride 0.9% 1,000 ML IV SCH (16:30)
[2019-08-10] MEDS ORDERED: Sodium Chloride 0.9% 500 ML IV SCH (16:45)
--- NOTE | 2019-08-10 17:01 | EKG ---
Test Reason : POST CABG Blood Pressure : / mmHG Vent. Rate : 041 BPM Atrial Rate : 064 BPM P-R Int : 000 ms QRS Dur : 082 ms QT Int : 614 ms P-R-T Axes : 000 018 006 degrees QTc Int : [address] elevation consider inferior injury or acute infarct Prolonged QT * ACUTE IA * Consider right ventricular involvement in acute inferior infarct Abnormal ECG When compared with ECG of 09-AUG-2019 11:29, (Unconfirmed) Junctional rhythm has replaced Sinus rhythm ST more depressed in Anterior leads T wave inversion more evident in Inferior leads QT has lengthened Confirmed by DR. Graeme SOLOMON ([id number]) on 08/10/2019 5:01:15 PM Referred By: SERG Confirmed By:DR. Graeme SOLOMON
--- NOTE | 2019-08-10 17:06 | EKG ---
Test Reason : POST REDO CABG Blood Pressure : / mmHG Vent. Rate : 097 BPM Atrial Rate : 097 BPM P-R Int : 000 ms QRS Dur : 096 ms QT Int : 242 ms P-R-T Axes : 000 065 083 degrees QTc Int : 307 ms Poor data quality, interpretation may be adversely affected Electronic ventricular pacemaker When compared with ECG of 10-AUG-2019 11:00, (Unconfirmed) Electronic ventricular pacemaker has replaced Junctional rhythm Vent. rate has increased BY 56 BPM Intermittent loss of capture and episode of non pacing. Confirmed by DR. Graeme SOLOMON ([id number]) on 08/10/2019 5:05:24 PM Referred By: SERG Confirmed By:DR. Graeme SOLOMON
[2019-08-10] MEDS: CEFAZOLIN 2 GM in Premix Bag 1 BAG IVPB SCH (17:47)
[2019-08-10] MEDS ORDERED: Ketorolac Tromethamine 15 MG/ML VIAL IVP SCH (18:00)
[2019-08-10 18:16] LABS: Actual Bicarbonate (HCO3a) 18.1 mEq/L (22-28); Base Excess (BEa) -5.9 mEq/L (-2.0 to +3.0); CO2 Tension 30.5 mmHg (35.0-45.0); Calcium, Ionized 1.09 mmol/L (1.12-1.30); Carboxyhemoglobin (COHb) 0.7 gm% (0.0-3.0); Hemoglobin (Hb) 10.1 g/dL (12.0-16.0); O2 Tension (PaO2) 79.9 mmHg (> 60.0); Potassium - ABG Lab 2.87 mmol/L (3.70-5.30); pH, Arterial 7.39 (7.35-7.45)
[2019-08-10 18:30] LABS: Hemoglobin 9.8 g/dL (12.0-16.0)
[2019-08-10] MEDS ORDERED: Ketorolac Tromethamine 30 MG/ML VIAL IVP SCH (18:45)
[2019-08-10 18:48] LABS: Potassium 2.9 mmol/L (3.5-5.1)
[2019-08-10] MEDS: Famotidine/PF 20 mg/2ml Vial SLOW IVP SCH (20:56)
[2019-08-10] MEDS: Atorvastatin Calcium 10 MG TAB PO SCH (20:56)
[2019-08-10] MEDS: HYDROcodone/Acetaminophen 5/325 mg Tablet PO PRN (22:11)
[2019-08-11] MEDS ORDERED: Ketorolac Tromethamine 30 MG/ML VIAL IVP SCH ×2 (02:00)
[2019-08-11] MEDS: Ketorolac Tromethamine 30 MG/ML VIAL IVP SCH ×3 (02:09→18:04)
[2019-08-11] MEDS: HYDROcodone/Acetaminophen 5/325 mg Tablet PO PRN ×4 (02:09→23:33)
[2019-08-11] MEDS: CEFAZOLIN 2 GM in Premix Bag 1 BAG IVPB SCH ×2 (02:10→09:26)
[2019-08-11 04:26] LABS: #Lymphocytes 0.9 thou/uL (1.20-3.40); #Monocytes 1.1 thou/uL (0.11-0.59); #Neutrophils 10.5 thou/uL (1.40-6.50); %Basophils 0.1 % (0.0-1.0); %Eosinophils 0.1 % (0.0-10.0); %Lymphocytes 7.4 % (21.0-51.0); %Monocytes 8.6 % (0.0-10.0); %Neutrophils 83.8 % (42.0-75.0); Hemoglobin 9.1 g/dL (12.0-16.0); Mean Corpuscular Hemoglobin 29.4 pg (27.0-31.0); Mean Corpuscular Volume 89.2 fL (78.0-98.0); Mean Platelet Volume 9.1 fL (7.4-10.4); Platelet Count 103 thou/uL (130-400); RBC Distribution Width 13.1 % (11.5-14.5); Red Blood Cell (RBC) Count 3.08 mill/uL (4.20-5.40); White Blood Cell (WBC) Count 12.6 thou/uL (4.8-10.8)
[2019-08-11 05:10] LABS: Anion Gap 9 mmol/L (10-20); BUN (Urea Nitrogen) 8 mg/dL (9.8-20.1); Calc. Creatinine Clearance 60 mL/min (70-130); Calcium 7.7 mg/dL (7.8-10.44); Carbon Dioxide 21 mmol/L (23-31); Chloride 108 mmol/L (98-107); Estimated GFR-MDRD Greater than 90; Glucose 96 mg/dL (83-110); Potassium 3.2 mmol/L (3.5-5.1); Sodium 135 mmol/L (136-145)
[2019-08-11 05:30] VITALS: BMI 23.9
[2019-08-11] MEDS: Potassium Chloride 20 MEQ/100 ML PREMIX BAG IVPB PRN (05:43)
--- NOTE | 2019-08-11 07:47 | PRG ---
DATE OF SERVICE: 08/11/2019 OBJECTIVE: VITAL SIGNS: Ms. Whitaker's heart rates in the 80s. She is in a paced rhythm. Blood pressure is 98/47. Respiratory rates in the teens. LUNGS: Clear. HEART: Regular rhythm. ABDOMEN: Soft. EXTREMITIES: Without edema. IMAGING STUDIES: Chest x-ray today shows no edema or effusions. Right subclavian catheter's tip is in the right atrium. Sternal wires appear intact. Nonspecific gas in the portion of her abdomen, that is visualized. LABORATORY DATA: White counts 12.6, hemoglobin 9.1, platelets 103,000. Sodium 135, potassium 3.2, chloride 108, bicarb 21, BUN 8, creatinine 0.62. IMPRESSION: 1. Status post coronary artery bypass grafting. 2. Postoperative sinus arrest, now AV paced. After re-exploration of the mediastinum, she is clinically stable. No distress. No neurological deficits. Job ID: [id number]
--- NOTE | 2019-08-11 08:04 | RAD ---
PORTABLE CHEST: DATE: 08/11/2019. PROVIDED CLINICAL HISTORY: Post open heart. FINDINGS: Comparison 08/10/2019. Interval extubation and removal of enteric catheter. Additional significant i nterval change with respect to the prior examination is not apparent. IMPRESSION: As above. POS: FELIC[facility]O
[2019-08-11] MEDS: Aspirin Chewable 81 MG TAB PO SCH (08:16)
[2019-08-11] MEDS: Famotidine/PF 20 mg/2ml Vial SLOW IVP SCH ×2 (08:16→20:34)
--- NOTE | 2019-08-11 08:18 | PDOC.CPN ---
- Subjective Date: 08/11/19 Time: 08:00 - Objective Allergies/Adverse Reactions: Allergies Allergy/AdvReac Type Severity Reaction Status Date / Time gabapentin Allergy Verified 08/09/19 18:45 pregabalin [From Lyrica] Allergy Verified 07/04/19 02:44 Visit Medications: Current Medications Acetaminophen (Tylenol) 650 mg PO Q6H PRN PRN Reason: Headache/Fever Or Mild Pain Hydrocodone Bitart/Acetaminophen ([place] 5/325) 1 tab PO Q4H PRN PRN Reason: Moderate Pain (4-6) Last Admin: 08/11/19 02:09 Dose: 1 tab Hydrocodone Bitart/Acetaminophen ([place] 5/325) 2 tab PO Q4H PRN PRN Reason: Severe Pain (7-10) Al Hydroxide/Mg Hydroxide (Maalox) 30 ml PO Q4H PRN PRN Reason: Indigestion Albumin Human (Albumin 5%) 12.5 gm IVPB Q6H PRN PRN Reason: To Maintain SBP> 90 mmHG Stop: 08/11/19 11:57 Albumin Human (Albumin 5%) 25 gm IVPB Q6H PRN PRN Reason: To Maintain SBP > 90 mmHG Stop: 08/11/19 11:57 Albuterol/Ipratropium (Duoneb) 3 ml NEB [id number] PRN PRN Reason: SHORTNESS OF BREATH Aspirin (Aspirin Chewable) 81 mg PO DAILY [facility] Atorvastatin Calcium (Lipitor) 10 mg PO QPM [facility] Last Admin: 08/10/19 20:56 Dose: 10 mg Bisacodyl (Dulcolax) 10 mg PO Q12H PRN PRN Reason: Constipation Bisacodyl (Dulcolax) 10 mg CO Q12H PRN PRN Reason: Constipation Dextrose/Water (Dextrose 50%) 25 gm SLOW IVP PRN PRN PRN Reason: PER HYPOGLYCEMIC PROTOCOL Famotidine (Pepcid) 20 mg SLOW IVP Q12HR [facility] Last Admin: 08/10/19 20:56 Dose: 20 mg Fentanyl (Sublimaze) 25 mcg SLOW IVP Q2H PRN PRN Reason: Moderate Pain (4-6) Stop: 08/12/19 10:36 Fentanyl (Sublimaze) 50 mcg SLOW IVP Q2H PRN PRN Reason: Severe Pain (7-10) Stop: 08/12/19 10:36 Glucagon (Glucagon) 1 mg SC PRN PRN PRN Reason: PER HYPOGLYCEMIC PROTOCOL Guaifenesin/Dextromethorphan (Robitussin Dm) 15 ml PO Q4H PRN PRN Reason: Cough Hydralazine HCl (Apresoline) 10 mg SLOW IVP Q6H PRN PRN Reason: To Maintain SBP< 140mmHG Epinephrine 1 mg/Miscellaneous Medication 1 each/ Dextrose/Water 251 mls @ 0 mls/hr IVPB INF DANA; Protocol Last Admin: 08/10/19 19:35 Dose: 251 mls Cefazolin Sodium/Dextrose 2 gm (/ Device) 50 mls @ 100 mls/hr IVPB 0200,1000, 1800 DANA Stop: 08/11/19 10:29 Last Admin: 08/11/19 02:10 Dose: 50 mls Dopamine HCl/Dextrose (Dopamine 400 Mg/D5w 250 Ml) 250 mls @ 0 mls/hr IVPB PRN PRN; Protocol PRN Reason: To maintain SBP > 90 mmHG Hetastarch/Sodium Chloride (Hespan) 500 mls @ 0 mls/hr IVPB PRN PRN PRN Reason: To Maintain SBP > 90mmHg Stop: 08/11/19 10:36 Norepinephrine Bitartrate (Levophed) 250 mls @ 0 mls/hr IVPB PRN PRN; Protocol PRN Reason: To maintain SBP > 90 mmHG Nicardipine HCl 25 mg/ Sodium (Chloride) 250 mls @ 0 mls/hr IVPB INF PRN; Protocol PRN Reason: To Maintain SBP< 140mmHG Nitroglycerin/Dextrose (Nitroglycerin 50 Mg/250 Ml Bot) 250 mls @ 0 mls/hr IVPB PRN PRN; Protocol PRN Reason: To Maintain SBP< 140mmHG Insulin Human Regular 100 (units/ Sodium Chloride) 101 mls @ 0 mls/hr IVPB INF DANA; Protocol Last Admin: 08/10/19 13:11 Dose: 101 mls Dextrose/Water (D5w) 1,000 mls @ 0 mls/hr IV INF PRN PRN Reason: PRN HYPOGLYCEMIC PROTOCOL Sodium Chloride (Normal Saline 0.9%) 1,000 mls @ 50 mls/hr IV .Q20H DANA Last Admin: 08/10/19 16:43 Dose: 1,000 mls Insulin Glargine (Lantus) 0 units SC ONE PRN PRN Reason: POST OPEN HEART ORDERS Stop: 08/11/19 17:00 Insulin Human Regular (Humulin R) 0 units SC Q4H PRN; Protocol PRN Reason: POST CABG SLIDING SCALE Last Admin: 08/10/19 19:07 Dose: 2 unit Ketorolac Tromethamine (Toradol) 15 mg IVP 0200,1000,1800 DANA Stop: 08/11/19 18:01 Last Admin: 08/11/19 02:09 Dose: 15 mg Morphine Sulfate (Morphine) 2 mg SLOW IVP Q15MIN PRN PRN Reason: Severe Pain (7-10) Ondansetron HCl (Zofran) 4 mg IVP Q6H PRN PRN Reason: Nausea/Vomiting Potassium Chloride (Kcl) 20 meq IVPB PRN PRN PRN Reason: K level </= 4.0 Last Admin: 08/11/19 05:43 Dose: 20 meq Promethazine HCl (Phenergan) 6.25 mg IM Q4H PRN PRN Reason: Nausea/Vomiting Vital Signs & Weight: Vital Signs Temp Pulse Ox 08/11/19 07:28 95 08/11/19 07:00 98.3 F 08/11/19 04:00 98.8 F 08/11/19 00:00 98.0 F Weight 126 lb 12.253 oz - Quality Measures Condition: Coronary Artery Disease CV meds: Beta Ever: No (CHB post op), ASA: Yes - Physical Exam HEENT: normocephaly Neck: no JVD/HJR Cardiac: regular rate and rhythm Lungs: clear to auscultation, other (chest tubes in) Neuro: grossly intact Abdomen: unremarkable Extremities: no cyanosis, no clubbing, no edema, 2+ femoral, 2+ Posterior Tibial , 2+ Dorsalis Pedus - Labs Result Diagrams: 08/11/19 04:09 08/11/19 04:09 Troponin/CKMB CK-MB (CK-2) 163.7 ng/mL (0-6.6) H* 08/09/19 11:36 Troponin I 22.121 ng/mL (< 0.028) H* 08/09/19 16:50 - Telemetry Sinus rhythms and dysrhythmias: sinus rhythm (CHB resolved. temporary pacemaker still on at 50bpm.) - Assessment/Plan Assessment/Plan: 1. CADS, s/p inferior NV, s/p CABG. DEVI-> LAD, SVG-> Intermediate. 2. CHB post op. - Maintaining NSR at this time. HR 80'S.May need a prmanent pacemaker prior to d/c. 3. HTN: stable. Add Christopher or ARB for HTN.
--- NOTE | 2019-08-11 08:51 | PRG ---
DATE OF SERVICE: 08/11/2019 The patient is awake and alert this morning. No complaints other than soreness with a deep breath. Her blood pressure is 125 currently on 0.06 mcg/kg per minute of epinephrine. Her heart rate about 78, sinus rhythm, although she does occasionally have a dropped P wave and occasional pause and the pacemaker has been set on a backup rate of about 50. Chest tube output has been minimal approximately 250 to 300 mL since surgery and urine output remains good. Her laboratory values; her hemoglobin is stable at about 9.1, and she has not been transfused at this point in time. Her creatinine is less than 1 and potassium continues to be low at 3.2. Her chest x-ray is clear. I have discussed this case with the patient, Dr. Clark, and with the patient's daughter by phone. 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 From talking to the daughter, she states that her mother frequently complains of dizzy spells and has passed out before. In any event, we will monitor in the ICU, wean her epinephrine as tolerated, and begin physical therapy. Job ID: [id number]
[2019-08-11] MEDS: Atorvastatin Calcium 10 MG TAB PO SCH (20:34)
[2019-08-12 04:53] LABS: #Eosinphils 0.1 thou/uL (0.0-0.7); #Lymphocytes 1.6 thou/uL (1.20-3.40); #Neutrophils 7.9 thou/uL (1.40-6.50); %Basophils 0.3 % (0.0-1.0); %Eosinophils 0.6 % (0.0-10.0); %Lymphocytes 14.6 % (21.0-51.0); %Monocytes 9.7 % (0.0-10.0); %Neutrophils 74.7 % (42.0-75.0); Hemoglobin 8.8 g/dL (12.0-16.0); Mean Corpuscular Hemoglobin 29.5 pg (27.0-31.0); Mean Corpuscular Volume 89.4 fL (78.0-98.0); Platelet Count 114 thou/uL (130-400); RBC Distribution Width 13.2 % (11.5-14.5); White Blood Cell (WBC) Count 10.6 thou/uL (4.8-10.8)
[2019-08-12 05:05] LABS: Anion Gap 9 mmol/L (10-20); BUN (Urea Nitrogen) 13 mg/dL (9.8-20.1); Calc. Creatinine Clearance 66 mL/min (70-130); Calcium 8.1 mg/dL (7.8-10.44); Carbon Dioxide 22 mmol/L (23-31); Chloride 107 mmol/L (98-107); Estimated GFR-MDRD Greater than 90; Glucose 108 mg/dL (83-110); Potassium 3.8 mmol/L (3.5-5.1); Sodium 134 mmol/L (136-145)
[2019-08-12] MEDS: HYDROcodone/Acetaminophen 5/325 mg Tablet PO PRN ×2 (05:06→08:33)
[2019-08-12] MEDS: Famotidine/PF 20 mg/2ml Vial SLOW IVP SCH (08:21)
[2019-08-12] MEDS: Aspirin Chewable 81 MG TAB PO SCH (08:22)
[2019-08-12] MEDS: Potassium Chloride 20 MEQ/100 ML PREMIX BAG IVPB PRN (08:22)
--- NOTE | 2019-08-12 08:32 | PDOC.CPN ---
- Subjective Date: 08/12/19 Time: 08:32 Interval history: The pt seen and examined. No overnight events. No cardiac complaints except soreness at surgical site. - Objective Allergies/Adverse Reactions: Allergies Allergy/AdvReac Type Severity Reaction Status Date / Time gabapentin Allergy Verified 08/09/19 18:45 pregabalin [From Lyrica] Allergy Verified 07/04/19 02:44 Visit Medications: Current Medications Acetaminophen (Tylenol) 650 mg PO Q6H PRN PRN Reason: Headache/Fever Or Mild Pain Hydrocodone Bitart/Acetaminophen ([place] 5/325) 1 tab PO Q4H PRN PRN Reason: Moderate Pain (4-6) Last Admin: 08/12/19 05:06 Dose: 1 tab Hydrocodone Bitart/Acetaminophen ([place] 5/325) 2 tab PO Q4H PRN PRN Reason: Severe Pain (7-10) Al Hydroxide/Mg Hydroxide (Maalox) 30 ml PO Q4H PRN PRN Reason: Indigestion Albuterol/Ipratropium (Duoneb) 3 ml NEB [id number] PRN PRN Reason: SHORTNESS OF BREATH Aspirin (Aspirin Chewable) 81 mg PO DAILY [facility] Last Admin: 08/12/19 08:22 Dose: 81 mg Atorvastatin Calcium (Lipitor) 10 mg PO QPM [facility] Last Admin: 08/11/19 20:34 Dose: 10 mg Bisacodyl (Dulcolax) 10 mg PO Q12H PRN PRN Reason: Constipation Last Admin: 08/11/19 20:33 Dose: 10 mg Bisacodyl (Dulcolax) 10 mg PA Q12H PRN PRN Reason: Constipation Famotidine (Pepcid) 20 mg SLOW IVP Q12HR [facility] Last Admin: 08/12/19 08:21 Dose: 20 mg Fentanyl (Sublimaze) 25 mcg SLOW IVP Q2H PRN PRN Reason: Moderate Pain (4-6) Stop: 08/12/19 10:36 Fentanyl (Sublimaze) 50 mcg SLOW IVP Q2H PRN PRN Reason: Severe Pain (7-10) Stop: 08/12/19 10:36 Guaifenesin/Dextromethorphan (Robitussin Dm) 15 ml PO Q4H PRN PRN Reason: Cough Hydralazine HCl (Apresoline) 10 mg SLOW IVP Q6H PRN PRN Reason: To Maintain SBP< 140mmHG Epinephrine 1 mg/Miscellaneous Medication 1 each/ Dextrose/Water 251 mls @ 0 mls/hr IVPB INF DANA; Protocol Last Admin: 08/10/19 19:35 Dose: 251 mls Dopamine HCl/Dextrose (Dopamine 400 Mg/D5w 250 Ml) 250 mls @ 0 mls/hr IVPB PRN PRN; Protocol PRN Reason: To maintain SBP > 90 mmHG Norepinephrine Bitartrate (Levophed) 250 mls @ 0 mls/hr IVPB PRN PRN; Protocol PRN Reason: To maintain SBP > 90 mmHG Nicardipine HCl 25 mg/ Sodium (Chloride) 250 mls @ 0 mls/hr IVPB INF PRN; Protocol PRN Reason: To Maintain SBP< 140mmHG Nitroglycerin/Dextrose (Nitroglycerin 50 Mg/250 Ml Bot) 250 mls @ 0 mls/hr IVPB PRN PRN; Protocol PRN Reason: To Maintain SBP< 140mmHG Morphine Sulfate (Morphine) 2 mg SLOW IVP Q15MIN PRN PRN Reason: Severe Pain (7-10) Ondansetron HCl (Zofran) 4 mg IVP Q6H PRN PRN Reason: Nausea/Vomiting Potassium Chloride (Kcl) 20 meq IVPB PRN PRN PRN Reason: K level </= 4.0 Last Admin: 08/12/19 08:22 Dose: 20 meq Promethazine HCl (Phenergan) 6.25 mg IM Q4H PRN PRN Reason: Nausea/Vomiting Vital Signs & Weight: Vital Signs Temp Pulse Ox 08/12/19 07:08 94 L 08/12/19 04:00 99.0 F 08/12/19 00:00 99.1 F Weight 124 lb 1.924 oz - Quality Measures Condition: Coronary Artery Disease CV meds: Beta Ever: No (CHB post op), ASA: Yes - Physical Exam HEENT: mucus membranes moist Neck: supple neck Cardiac: regular rate and rhythm, S1/S2 Lungs: decreased breath sounds - Labs Result Diagrams: 08/12/19 04:10 08/12/19 04:10 Troponin/CKMB CK-MB (CK-2) 163.7 ng/mL (0-6.6) H* 08/09/19 11:36 Troponin I 22.121 ng/mL (< 0.028) H* 08/09/19 16:50 - Telemetry Sinus rhythms and dysrhythmias: sinus rhythm - Assessment/Plan Assessment/Plan: 1. CADS, s/p inferior IL, s/p CABG x2 with DEVI-> LAD, SVG-> Intermediate - still with CT with some drainage; On ASA and Statin; will start BBlocker or CHRISTOPHER/ ARB with more stable VS. 2. CHB post op. - Maintaining NSR at this time. HR 70-80'S. hx of multiple episodes of dizziness and s/p syncopal episodes. May need a prmanent pacemaker prior to d/c. 3. HTN: stable; epinephrine drip is off this AM. May add Christopher or ARB for HTN. BRENNA reviewed * Echo on 08/09/2019 with EF 60-65%, grade I dd, mild-mod MR, mild TR and PA, and mild PE Pt. seen and eval. by me. I agree with the A/P by the nurse practioner except I hear fine bibasilar rales. She otherwise looks good. she is transferring to tele floor. On d/c she will need a monitor if she doesn't get a pacemaker in the interval There is still concern regarding the CHB that she had post-op. oren
--- NOTE | 2019-08-12 09:00 | RAD ---
PORTABLE CHEST 1 VIEW: DATE: 08/12/2019. TIME: 5:05 AM. HISTORY: Postop open heart surgery. COMPARISON: Previous day. FINDINGS: There are changes of median sternotomy. Bilateral chest tubes, mediastinal drain, and right subclavi an central line remain in place. The heart size is stable with atelectatic change/consolidation at t he left lung base. Small pleural effusions may be present. No pneumothoraces are identified. POS: [facility]
[2019-08-12 10:07] LABS: Actual Bicarbonate (HCO3a) 22.9 mEq/L (22-28); Analyzer IN Cardio OR; Base Excess (BEa) 1.7 mEq/L (-2.0 to +3.0); CO2 Tension 26.4 mmHg (35.0-45.0); Calcium, Ionized 1.04 mmol/L (1.12-1.30); Carboxyhemoglobin (COHb) 0.7 gm% (0.0-3.0); Hemoglobin (Hb) 11.7 g/dL (12.0-16.0); O2 Tension (PaO2) 460.2 mmHg (> 60.0)
[2019-08-12 10:08] LABS: Actual Bicarbonate (HCO3a) 24.2 mEq/L (22-28); Analyzer IN Cardio OR; CO2 Tension 37.8 mmHg (35.0-45.0); Calcium, Ionized 1.09 mmol/L (1.12-1.30); Carboxyhemoglobin (COHb) 0.4 gm% (0.0-3.0); Hemoglobin (Hb) 12.2 g/dL (12.0-16.0); O2 Tension (PaO2) 430.3 mmHg (> 60.0); Potassium - ABG Lab 3.03 mmol/L (3.70-5.30); pH, Arterial 7.42 (7.35-7.45)
[2019-08-12 10:11] LABS: Puncture Site ALINE; pH, Arterial 7.56 (7.35-7.45)
[2019-08-12 10:12] LABS: Puncture Site ALINE
--- NOTE | 2019-08-12 10:37 | PRG ---
DATE OF SERVICE: 08/12/2019 The patient is postop day #2. Awake and alert. No complaints. Blood pressure 120 to 130, heart rate 80s with frequent unifocal PVCs and occasional sinus pauses. Her hemoglobin has drifted slightly into the 8 range and her potassium remains low, but slowly increasing, probably low related to chronic hydrochlorothiazide treatment. Her chest x-ray looks good and her creatinine remains normal. She is awake, alert, and is in bed presently, although did spend about an hour and a half up in the chair already today. Her chest tubes x3 were removed and her Charles can be removed later this morning. We will transfer her to the floor, leave her pacer wires in for now and monitor her rhythm on the floor. Plan for discharge is that she is going to go to [place] to be with her daughter. Job ID: [id number]
[2019-08-12] MEDS ORDERED: Bisacodyl 10 MG SUPP PR PRN (12:38)
[2019-08-12] MEDS ORDERED: Acetaminophen 325 MG TAB PO PRN (12:38)
[2019-08-12] MEDS ORDERED: Nitroglycerin 0.4 MG TAB (25 Tab Bottle) SL PRN (12:38)
[2019-08-12] MEDS ORDERED: Mag-Al 1200 mg/1200 mg/30 ML UDCUP PO PRN (12:38)
[2019-08-12] MEDS ORDERED: Ondansetron PF 4 MG/2 ML Vial IVP PRN (12:38)
[2019-08-12] MEDS ORDERED: Mineral Oil ENEMA PR PRN (12:38)
[2019-08-12] MEDS ORDERED: Guaifenesin DM 100-10/5 ML UDCUP PO PRN (12:38)
--- NOTE | 2019-08-12 12:46 | EKG ---
Test Reason : Blood Pressure : / mmHG Vent. Rate : 082 BPM Atrial Rate : 082 BPM P-R Int : 270 ms QRS Dur : 082 ms QT Int : 408 ms P-R-T Axes : 074 017 057 degrees QTc Int : 476 ms Sinus rhythm with 1st degree A-V block Otherwise normal ECG When compared with ECG of 10-AUG-2019 12:53, Sinus rhythm has replaced Electronic ventricular pacemaker Confirmed by DR. Graeme SOLOMON ([id number]) on 08/12/2019 12:46:12 PM Referred By: LIZA Confirmed By:DR. Graeme SOLOMON
[2019-08-12] MEDS: traMADol HCl 50 MG TAB PO PRN (13:28)
--- NOTE | 2019-08-12 16:19 | PRG ---
DATE OF SERVICE: 08/12/2019 SUBJECTIVE: Ms. Whitaker's pacer wires are out. She is in no distress. She denies shortness of breath. She is still on room air. She is complaining of sternal discomfort. OBJECTIVE: LUNGS: She has equal breath sounds on both sides. HEART: Regular rhythm. ABDOMEN: Soft. IMPRESSION: 1. Status post coronary artery bypass grafting, clinically stable. 2. Status post requirements for pacing. PLAN: Continue current supportive care. Job ID: [id number]
[2019-08-12] MEDS ORDERED: ALPRAZolam 0.25 MG TAB PO PRN (16:22)
[2019-08-12] MEDS ORDERED: ALPRAZolam 0.25 MG TAB PO SCH (16:30)
[2019-08-12] MEDS: Fentanyl 100 MCG/2 ML VIAL SLOW IVP PRN ×2 (16:38→20:38)
[2019-08-12] MEDS: Atorvastatin Calcium 10 MG TAB PO SCH (20:39)
[2019-08-12] MEDS: Bisacodyl 5 MG TAB PO PRN (20:39)
[2019-08-12] MEDS: Famotidine 20 MG TAB PO SCH (20:39)
[2019-08-13] MEDS: Fentanyl 100 MCG/2 ML VIAL SLOW IVP PRN ×4 (03:34→20:24)
--- NOTE | 2019-08-13 07:53 | PRG ---
DATE OF SERVICE: SUBJECTIVE: The patient is now postoperative day #3 from coronary artery bypass grafting requiring reoperation for symptomatic complete heart block and hypotension with no obvious causes noted at the time of surgery. Blood pressure has been elevated around 150 to 160. Her heart rate has been in the 90 range with some PACs and one episode of apparent atrial tachycardia that was transient. Her weight is recorded this morning as 125 compared to her normal 110 to 115 at home and she is to begin oral Lasix today. Her primary problem is pain in chest and back, which has been persistent and prevented her from walking yesterday afternoon. OBJECTIVE: LUNGS: Clear to auscultation anteriorly. CHEST: Sternum appears stable. SKIN: Her incision appears dry, although she does have some small spotting on her gown suggesting there may have been some small amount of drainage from some source on her chest. ABDOMEN: Soft. EXTREMITIES: Her legs are without edema. ASSESSMENT AND PLAN: I began tramadol yesterday afternoon and I added some Xanax. Her blood pressure is going to be treated with lisinopril 5 b.i.d. to start with. As noted above. She is to begin oral Lasix today for her elevated weight, which is not obviously of problem at this time if she is breathing comfortably. Job ID: [id number]
[2019-08-13] MEDS: Potassium Chloride 20 MEQ TAB PO SCH (08:27)
[2019-08-13] MEDS: Polyethylene Glycol 3350 17 GM Packet PO SCH (08:28)
[2019-08-13] MEDS: Lisinopril 5 MG TAB PO SCH ×2 (08:28→20:20)
[2019-08-13] MEDS: Famotidine 20 MG TAB PO SCH ×2 (08:28→20:20)
--- NOTE | 2019-08-13 08:36 | PDOC.CPN ---
- Subjective Date: 08/13/19 Time: 08:37 Interval history: The pt seen and examined. No overnight events. No cardiac complaints, except pain to surgical sites - Objective Allergies/Adverse Reactions: Allergies Allergy/AdvReac Type Severity Reaction Status Date / Time gabapentin Allergy Verified 08/09/19 18:45 pregabalin [From Lyrica] Allergy Verified 07/04/19 02:44 Visit Medications: Current Medications Acetaminophen (Tylenol) 650 mg PO Q6H PRN PRN Reason: Headache/Fever or Pain Al Hydroxide/Mg Hydroxide (Maalox) 30 ml PO Q4H PRN PRN Reason: Indigestion Alprazolam (Xanax) 0.25 mg PO BIDPRN PRN PRN Reason: Anxiety Aspirin (Aspirin Chewable) 81 mg PO DAILY [facility] Last Admin: 08/12/19 08:22 Dose: 81 mg Atorvastatin Calcium (Lipitor) 10 mg PO QPM [facility] Last Admin: 08/12/19 20:39 Dose: 10 mg Bisacodyl (Dulcolax) 10 mg PO Q12H PRN PRN Reason: Constipation Last Admin: 08/12/19 20:39 Dose: 10 mg Bisacodyl (Dulcolax) 10 mg HI Q12H PRN PRN Reason: Constipation Famotidine (Pepcid) 20 mg PO BID [facility] Last Admin: 08/13/19 08:28 Dose: 20 mg Fentanyl (Sublimaze) 25 mcg SLOW IVP Q4H PRN PRN Reason: Severe Pain (7-10) Last Admin: 08/13/19 08:26 Dose: 25 mcg Furosemide (Lasix) 40 mg PO DAILY [facility] Last Admin: 08/13/19 08:28 Dose: 40 mg Guaifenesin/Dextromethorphan (Robitussin Dm) 15 ml PO Q4H PRN PRN Reason: Cough Lisinopril (Zestril) 5 mg PO BID [facility] Last Admin: 08/13/19 08:28 Dose: 5 mg Melatonin (Melatonin) 3 mg PO HSPRN PRN PRN Reason: Insomnia Mineral Oil (Fleet Mineral Oil) 133 ml HI DAILYPRN PRN PRN Reason: Constipation Nitroglycerin (Nitrostat) 0.4 mg SL Q5MIN PRN PRN Reason: Chest Pain Ondansetron HCl (Zofran) 4 mg IVP Q6H PRN PRN Reason: Nausea/Vomiting Polyethylene Glycol (Miralax) 17 gm PO DAILY [facility] Last Admin: 08/13/19 08:28 Dose: 17 gm Potassium Chloride (K-Dur) 20 meq PO QAM-WM [facility] Last Admin: 08/13/19 08:27 Dose: 20 meq Sodium Chloride (Flush - Normal Saline) 10 ml IVF Q12HR [facility] Last Admin: 08/13/19 08:29 Dose: 10 ml Sodium Chloride (Flush - Normal Saline) 10 ml IVF PRN PRN PRN Reason: Saline Flush Tramadol HCl (Ultram) 50 mg PO Q6H PRN PRN Reason: Moderate Pain (4-6) Last Admin: 08/12/19 13:28 Dose: 50 mg Vital Signs & Weight: Vital Signs Temp Pulse Resp BP Pulse Ox 08/13/19 08:28 99 08/13/19 08:01 94 L 08/13/19 07:50 98.7 F 99 20 171/77 H 94 L 08/13/19 07:17 96 08/13/19 03:55 98.1 F 18 159/77 H 97 Weight 125 lb 12.8 oz - Quality Measures Condition: Coronary Artery Disease CV meds: Beta Ever: No (CHB post op), ASA: Yes - Physical Exam General: alert & oriented x3 HEENT: mucus membranes moist Neck: supple neck Cardiac: regular rate and rhythm, S1/S2 Lungs: decreased breath sounds Neuro: cranial nerve 2-12 intact Abdomen: unremarkable Extremities: no edema - Labs Result Diagrams: 08/12/19 04:10 08/12/19 04:10 Troponin/CKMB CK-MB (CK-2) 163.7 ng/mL (0-6.6) H* 08/09/19 11:36 Troponin I 22.121 ng/mL (< 0.028) H* 08/09/19 16:50 - Telemetry Sinus rhythms and dysrhythmias: sinus rhythm - Assessment/Plan Assessment/Plan: 1. CADS, s/p inferior UT, s/p CABG x2 with DEVI-> LAD, SVG-> Intermediate - Stable; on ASA and Statin; Lisinopril will be started from this am; holding BBlocker for now due to hx of bradycardia. 2. CHB post op. - Maintaining NSR at this time with HR 80-90s. 1 episode of [place] last night? hx of multiple episodes of dizziness and s/p syncopal episodes. May need a prmanent pacemaker prior to d/c or d/c home with EVR. 3. HTN: lisinopril BID from this AM; BBlocker is on hold due to hx of bradycardia. MAR reviewed * Echo on 08/09/2019 with EF 60-65%, grade I dd, mild-mod MR, mild TR and HI, and mild PE Pt. seen and eval. by me. Georgi with the A/P by the PERSONAL PROPERTY APPRAISER. She is still sore from the procedure but walked once yesterday. Incision is dry. Mild left ankle edema. Chest: few basilar rales. CV: RRR. Continue to monitor rhythm carfully. Episode last PM of tachycardia, MAT. She may have SSS and I am not convinced she will not need a pacemaker prior to d/c. Will need a monitor on d/c. Hold betablockers.oren
[2019-08-13] MEDS ORDERED: Furosemide 40 MG TAB PO SCH (09:00)
[2019-08-13] MEDS: Aspirin Chewable 81 MG TAB PO SCH (11:07)
--- NOTE | 2019-08-13 11:31 | PRG ---
DATE OF SERVICE: 08/13/2019 SUBJECTIVE: Nadia Whitaker says her pain is much better today. She had a pain pill this morning. She walked once yesterday. She has not walked yet today. OBJECTIVE: VITAL SIGNS: Blood pressure 171/77, she is afebrile, heart rate is in the 90s, respiratory rate is 20, and oximetry is 94. LUNGS: Clear. HEART: Regular rhythm. ABDOMEN: Soft. CHEST: There is no sternal erythema. IMPRESSION: Status post coronary artery bypass graft, complicated by heart block postoperatively, requiring reexploration and pacing. She is doing well with no pacing at this time. Her pain is better. We will continue. Job ID: [id number]
[2019-08-13] MEDS: Atorvastatin Calcium 10 MG TAB PO SCH (20:20)
[2019-08-14] MEDS: Fentanyl 100 MCG/2 ML VIAL SLOW IVP PRN ×2 (05:16→13:57)
--- NOTE | 2019-08-14 07:18 | PRG ---
DATE OF SERVICE: 08/14/2019 SUBJECTIVE: The patient is now postoperative day #4 from coronary artery bypass grafting. Her blood pressure is running in the 130-150 range and her heart rate in the 90s, sinus rhythm predominantly with occasional PACs. Her weight is recorded at 133, which is still over her admission weight of about 115. The patient has no new laboratory reports today. She walked twice with physical therapy yesterday. She is complaining some dyspnea this morning. OBJECTIVE: LUNGS: Clear to auscultation anteriorly. Her chest incision looks good. Her pacing wires were removed. EXTREMITIES: She was noted to have no peripheral edema. PLAN: We will switch her to IV Lasix for the next couple of days and hopefully, she can go to her daughter's this weekend if she makes more progress with her ambulation. Job ID: [id number]
--- NOTE | 2019-08-14 08:35 | PDOC.CPN ---
- Subjective Date: 08/14/19 Time: 08:38 Interval history: The pt seen and examined. No overnight events. No cardiac complaints - Objective Allergies/Adverse Reactions: Allergies Allergy/AdvReac Type Severity Reaction Status Date / Time gabapentin Allergy Verified 08/09/19 18:45 pregabalin [From Lyrica] Allergy Verified 07/04/19 02:44 Visit Medications: Current Medications Acetaminophen (Tylenol) 650 mg PO Q6H PRN PRN Reason: Headache/Fever or Pain Al Hydroxide/Mg Hydroxide (Maalox) 30 ml PO Q4H PRN PRN Reason: Indigestion Alprazolam (Xanax) 0.25 mg PO BIDPRN PRN PRN Reason: Anxiety Aspirin (Aspirin Chewable) 81 mg PO DAILY [facility] Last Admin: 08/13/19 11:07 Dose: 81 mg Atorvastatin Calcium (Lipitor) 10 mg PO QPM [facility] Last Admin: 08/13/19 20:20 Dose: 10 mg Bisacodyl (Dulcolax) 10 mg PO Q12H PRN PRN Reason: Constipation Last Admin: 08/12/19 20:39 Dose: 10 mg Bisacodyl (Dulcolax) 10 mg [place] Q12H PRN PRN Reason: Constipation Famotidine (Pepcid) 20 mg PO BID [facility] Last Admin: 08/13/19 20:20 Dose: 20 mg Fentanyl (Sublimaze) 25 mcg SLOW IVP Q4H PRN PRN Reason: Severe Pain (7-10) Last Admin: 08/14/19 05:16 Dose: 25 mcg Furosemide (Lasix) 40 mg SLOW IVP DAILY [facility] Guaifenesin/Dextromethorphan (Robitussin Dm) 15 ml PO Q4H PRN PRN Reason: Cough Lisinopril (Zestril) 5 mg PO BID [facility] Last Admin: 08/13/19 20:20 Dose: 5 mg Melatonin (Melatonin) 3 mg PO HSPRN PRN PRN Reason: Insomnia Mineral Oil (Fleet Mineral Oil) 133 ml [place] DAILYPRN PRN PRN Reason: Constipation Nitroglycerin (Nitrostat) 0.4 mg SL Q5MIN PRN PRN Reason: Chest Pain Ondansetron HCl (Zofran) 4 mg IVP Q6H PRN PRN Reason: Nausea/Vomiting Polyethylene Glycol (Miralax) 17 gm PO DAILY [facility] Last Admin: 08/13/19 08:28 Dose: 17 gm Potassium Chloride (K-Dur) 20 meq PO QAM-WM [facility] Last Admin: 08/13/19 08:27 Dose: 20 meq Sodium Chloride (Flush - Normal Saline) 10 ml IVF Q12HR [facility] Last Admin: 08/13/19 21:45 Dose: Not Given Sodium Chloride (Flush - Normal Saline) 10 ml IVF PRN PRN PRN Reason: Saline Flush Tramadol HCl (Ultram) 50 mg PO Q6H PRN PRN Reason: Moderate Pain (4-6) Last Admin: 08/12/19 13:28 Dose: 50 mg Vital Signs & Weight: Vital Signs Temp Pulse Resp BP Pulse Ox 08/14/19 04:25 95 08/14/19 04:00 99.3 F 94 22 H 125/59 L 95 08/13/19 23:41 99.0 F Weight 127 lb 1.6 oz - Quality Measures Condition: Coronary Artery Disease CV meds: Beta Ever: No (CHB post op), ASA: Yes - Physical Exam General: alert & oriented x3 HEENT: mucus membranes moist Neck: supple neck Cardiac: regular rate and rhythm, S1/S2 Lungs: clear to auscultation, decreased breath sounds Neuro: cranial nerve 2-12 intact Abdomen: unremarkable Extremities: no edema - Labs Result Diagrams: 08/12/19 04:10 08/12/19 04:10 Troponin/CKMB CK-MB (CK-2) 163.7 ng/mL (0-6.6) H* 08/09/19 11:36 Troponin I 22.121 ng/mL (< 0.028) H* 08/09/19 16:50 - Telemetry Sinus rhythms and dysrhythmias: sinus rhythm - Assessment/Plan Assessment/Plan: 1. CADS, s/p inferior SC, s/p CABG x2 with DEVI-> LAD, SVG-> Intermediate - Stable; on Lisinopril, ASA and Statin; holding BBlocker for now due to hx of bradycardia. Lasix was changed to IV today for wt gain > 10lbs ( per the pt, her normal Wt is 109-110 lbs) 2. CHB post op. - Maintaining NSR at this time with HR 80-90s. hx of multiple episodes of dizziness and s/p syncopal episodes. May need a prmanent pacemaker prior to d/c or d/c home with EVR. 3. HTN: stable; BBlocker is on hold due to hx of bradycardia. MAR reviewed * Echo on 08/09/2019 with EF 60-65%, grade I dd, mild-mod MR, mild TR and VA, and mild PE * Per the pt, she will stay with her daughter who lives in [place]. Pt. seen and eval. by me. I agree with the A/p by the BEEF GRADER. New findings this AM. Pt. had a 4 mi. episode of Afib. with RVR. while walkig. HR 170. I will start low dose betablockers. If she has bradycardia or conduction abnormalities then she will need a pacemaker prior to d/c. the Hgb. was decreased but this is likely due to dilution. Recheck over the weekend. BP also elevated, betablockers may help , if not then add Norvasc.
[2019-08-14] MEDS: Polyethylene Glycol 3350 17 GM Packet PO SCH (09:17)
[2019-08-14] MEDS: Famotidine 20 MG TAB PO SCH ×2 (09:17→20:11)
[2019-08-14] MEDS: Lisinopril 5 MG TAB PO SCH ×2 (09:17→20:12)
[2019-08-14] MEDS: Bisacodyl 5 MG TAB PO PRN (09:17)
[2019-08-14] MEDS: Furosemide 40 MG/4 ML VIAL SLOW IVP SCH (09:17)
[2019-08-14] MEDS: Aspirin Chewable 81 MG TAB PO SCH (09:17)
[2019-08-14] MEDS: Potassium Chloride 20 MEQ TAB PO SCH (09:18)
[2019-08-14] MEDS ORDERED: Metoprolol Tartrate 25 MG TAB PO SCH ×2 (12:20→21:00)
--- NOTE | 2019-08-14 17:26 | PRG ---
DATE OF SERVICE: 08/14/2019 OBJECTIVE: GENERAL: Ms. Whitaker is afebrile. VITAL SIGNS: Heart rate is 94, respiratory rate is 20, oximetry is 96% on room air, blood pressure 144/66 this afternoon. She states her chest discomfort is a little better each day. LUNGS: Clear. HEART: Regular rhythm. ABDOMEN: Soft. She did get up and walk around and went into atrial fib while she was walking. IMPRESSION: 1. Status post coronary artery bypass grafting. 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 She is certainly at risk for having bradycardia with treatment of atrial fibrillation. 3. Overall, she appears to be stable and appears to be slowly improving. She eventually plans to go home with her daughter in [place]. Job ID: [id number]
[2019-08-14] MEDS: Atorvastatin Calcium 10 MG TAB PO SCH (20:11)
[2019-08-14] MEDS: Metoprolol Tartrate 25 MG TAB PO SCH (20:12)
[2019-08-14] MEDS: Melatonin 3 MG TAB PO PRN (21:45)
[2019-08-15] MEDS: traMADol HCl 50 MG TAB PO PRN ×3 (03:14→17:51)
[2019-08-15] MEDS: Polyethylene Glycol 3350 17 GM Packet PO SCH (08:01)
[2019-08-15] MEDS: Bisacodyl 5 MG TAB PO PRN (08:02)
[2019-08-15] MEDS: Lisinopril 5 MG TAB PO SCH ×2 (08:02→20:28)
[2019-08-15] MEDS: Metoprolol Tartrate 25 MG TAB PO SCH ×2 (08:02→20:28)
[2019-08-15] MEDS: Potassium Chloride 20 MEQ TAB PO SCH (08:02)
[2019-08-15] MEDS: Furosemide 40 MG/4 ML VIAL SLOW IVP SCH (08:02)
[2019-08-15] MEDS: Famotidine 20 MG TAB PO SCH ×2 (08:02→20:28)
[2019-08-15] MEDS: Aspirin Chewable 81 MG TAB PO SCH (08:02)
[2019-08-15] MEDS ORDERED: Milk Of Magnesia 30 ML UDCUP PO PRN (10:12)
--- NOTE | 2019-08-15 11:51 | PRG ---
DATE OF SERVICE: 08/15/2019 SUBJECTIVE: Nadia Whitaker did well overnight. She has been walking in [place] this morning. OBJECTIVE: VITAL SIGNS: She is afebrile, heart rate 70, respiratory rate 16, oximetry is 96% on room air, blood pressure 131/73. CHEST: Her sternal discomfort persists, but is not severe. She has no erythema or drainage from her sternum. LUNGS: Clear. HEART: Regular rhythm. ABDOMEN: Soft. LABORATORY DATA: There is no new lab. IMPRESSION AND PLAN: 1. Bradycardia in the perioperative period after coronary artery bypass grafting. 2. Atrial fibrillation while ambulating yesterday. 3. High risk for bradycardia again with her tachycardia and treatment of atrial fibrillation. She will continue to be watched in the telemetry unit. She overall appears to be stable. Job ID: [id number]
[2019-08-15] MEDS ORDERED: Magnesium Citrate 300 ML BOT PO PRN (15:00)
--- NOTE | 2019-08-15 16:53 | PDOC.CPN ---
- Subjective Date: 08/15/19 Time: 16:51 Interval history: She is doing well. No new issues. No bradycardia. - Review of Systems General: denies: fever/chills, weight/appetite/sleep changes, night sweats, fatigue Respiratory: denies: cough, congestion, shortness of breath, exercise intolerance Cardiovascular: denies: chest pain, palpitation, edema, paroxysmal nocturnal dyspnea, orthopnea Gastrointestinal: denies: nausea, vomiting, diarrhea, constipation, abd pain, GI bleeding Musculoskeletal: denies: pain, tenderness, stiffness, swelling, arthritis/ arthralgias Neurological: denies: numbness, syncope, seizure, weakness - Objective Allergies/Adverse Reactions: Allergies Allergy/AdvReac Type Severity Reaction Status Date / Time gabapentin Allergy Verified 08/09/19 18:45 pregabalin [From Lyrica] Allergy Verified 07/04/19 02:44 Visit Medications: Current Medications Acetaminophen (Tylenol) 650 mg PO Q6H PRN PRN Reason: Headache/Fever or Pain Al Hydroxide/Mg Hydroxide (Maalox) 30 ml PO Q4H PRN PRN Reason: Indigestion Last Admin: 08/15/19 11:48 Dose: 30 ml Alprazolam (Xanax) 0.25 mg PO BIDPRN PRN PRN Reason: Anxiety Aspirin (Aspirin Chewable) 81 mg PO DAILY [facility] Last Admin: 08/15/19 08:02 Dose: 81 mg Atorvastatin Calcium (Lipitor) 10 mg PO QPM [facility] Last Admin: 08/14/19 20:11 Dose: 10 mg Bisacodyl (Dulcolax) 10 mg PO Q12H PRN PRN Reason: Constipation Last Admin: 08/15/19 08:02 Dose: 10 mg Bisacodyl (Dulcolax) 10 mg [place] Q12H PRN PRN Reason: Constipation Famotidine (Pepcid) 20 mg PO BID [facility] Last Admin: 08/15/19 08:02 Dose: 20 mg Fentanyl (Sublimaze) 25 mcg SLOW IVP Q4H PRN PRN Reason: Severe Pain (7-10) Last Admin: 08/14/19 13:57 Dose: 25 mcg Furosemide (Lasix) 40 mg SLOW IVP DAILY [facility] Last Admin: 08/15/19 08:02 Dose: 40 mg Guaifenesin/Dextromethorphan (Robitussin Dm) 15 ml PO Q4H PRN PRN Reason: Cough Lisinopril (Zestril) 5 mg PO BID [facility] Last Admin: 08/15/19 08:02 Dose: 5 mg Magnesium Citrate (Citrate Of Magnesia 300 Ml Bot) 300 ml PO ONE PRN PRN Reason: constipation Stop: 08/15/19 23:59 Magnesium Hydroxide (Milk Of Magnesium) 30 ml PO DAILYPRN PRN PRN Reason: Constipation Melatonin (Melatonin) 3 mg PO HSPRN PRN PRN Reason: Insomnia Last Admin: 08/14/19 21:45 Dose: 3 mg Metoprolol Tartrate (Lopressor) 25 mg PO BID [facility] Last Admin: 08/15/19 08:02 Dose: 25 mg Mineral Oil (Fleet Mineral Oil) 133 ml [place] DAILYPRN PRN PRN Reason: Constipation Nitroglycerin (Nitrostat) 0.4 mg SL Q5MIN PRN PRN Reason: Chest Pain Ondansetron HCl (Zofran) 4 mg IVP Q6H PRN PRN Reason: Nausea/Vomiting Last Admin: 08/15/19 08:02 Dose: 4 mg Polyethylene Glycol (Miralax) 17 gm PO DAILY [facility] Last Admin: 08/15/19 08:01 Dose: 17 gm Potassium Chloride (K-Dur) 20 meq PO QAM-WM [facility] Last Admin: 08/15/19 08:02 Dose: 20 meq Sodium Chloride (Flush - Normal Saline) 10 ml IVF Q12HR [facility] Last Admin: 08/15/19 08:03 Dose: 10 ml Sodium Chloride (Flush - Normal Saline) 10 ml IVF PRN PRN PRN Reason: Saline Flush Tramadol HCl (Ultram) 50 mg PO Q6H PRN PRN Reason: Moderate Pain (4-6) Last Admin: 08/15/19 10:48 Dose: 50 mg Vital Signs & Weight: Vital Signs Temp Pulse Pulse Pulse Resp BP BP 08/15/19 15:35 99 F 66 16 08/15/19 14:29 67 65 104/58 L 129/59 L 08/15/19 12:20 68 74 128/57 L 127/70 08/15/19 11:39 98.4 F 64 16 08/15/19 07:30 97.9 F 70 16 BP BP Pulse Ox 08/15/19 15:35 124/58 L 94 L 08/15/19 14:29 08/15/19 12:20 08/15/19 11:39 100/84 93 L 08/15/19 07:30 131/73 96 Weight 121 lb 4.8 oz - Quality Measures Condition: Coronary Artery Disease CV meds: Beta Ever: No (CHB post op), ASA: Yes - Physical Exam General: alert & oriented x3 HEENT: mucus membranes moist Neck: supple neck Cardiac: regular rate and rhythm Lungs: normal breath sounds Neuro: grossly intact Abdomen: active bowel sounds Extremities: no edema Skin: clear - Labs Result Diagrams: 08/12/19 04:10 08/12/19 04:10 Troponin/CKMB CK-MB (CK-2) 163.7 ng/mL (0-6.6) H* 08/09/19 11:36 Troponin I 22.121 ng/mL (< 0.028) H* 08/09/19 16:50 - Telemetry Sinus rhythms and dysrhythmias: other (NSR, non sustained VT 7 beats.) - Assessment/Plan Assessment/Plan: 1. CADS, s/p inferior [place], s/p CABG x2 with DEVI-> LAD, SVG-> Intermediate 2. CHB post op, resolved. 3. HTN 4. Non sustained VT 7 beats. 5. Post op afib PLAN: - Currently in sinus. - BB for NSVT and post op afib, no episodes of bradycardia. - Continue to monitor. - PT as tolerated.
[2019-08-15] MEDS: Atorvastatin Calcium 10 MG TAB PO SCH (20:28)
[2019-08-15] MEDS: Melatonin 3 MG TAB PO PRN (20:34)
[2019-08-16] MEDS: traMADol HCl 50 MG TAB PO PRN ×3 (04:45→21:51)
[2019-08-16] MEDS: Potassium Chloride 20 MEQ TAB PO SCH (09:01)
[2019-08-16] MEDS: Lisinopril 5 MG TAB PO SCH ×2 (09:01→21:51)
[2019-08-16] MEDS: Furosemide 40 MG/4 ML VIAL SLOW IVP SCH (09:02)
[2019-08-16] MEDS: Polyethylene Glycol 3350 17 GM Packet PO SCH (09:02)
[2019-08-16] MEDS: Aspirin Chewable 81 MG TAB PO SCH (09:02)
[2019-08-16] MEDS: Famotidine 20 MG TAB PO SCH ×2 (09:02→21:51)
[2019-08-16] MEDS: Metoprolol Tartrate 25 MG TAB PO SCH ×2 (09:02→21:51)
--- NOTE | 2019-08-16 14:00 | PDOC.CPN ---
- Subjective Date: 08/16/19 Time: 13:59 Interval history: Doing well, working with PT, having BM's. - Review of Systems General: denies: fever/chills, weight/appetite/sleep changes, night sweats, fatigue Respiratory: denies: cough, congestion, shortness of breath, exercise intolerance Cardiovascular: denies: chest pain, palpitation, edema, paroxysmal nocturnal dyspnea, orthopnea Gastrointestinal: denies: nausea, vomiting, diarrhea, constipation, abd pain, GI bleeding Musculoskeletal: denies: pain, tenderness, stiffness, swelling, arthritis/ arthralgias Neurological: denies: numbness, syncope, seizure, weakness - Objective Allergies/Adverse Reactions: Allergies Allergy/AdvReac Type Severity Reaction Status Date / Time gabapentin Allergy Verified 08/09/19 18:45 pregabalin [From Lyrica] Allergy Verified 07/04/19 02:44 Visit Medications: Current Medications Acetaminophen (Tylenol) 650 mg PO Q6H PRN PRN Reason: Headache/Fever or Pain Last Admin: 08/15/19 20:34 Dose: 650 mg Al Hydroxide/Mg Hydroxide (Maalox) 30 ml PO Q4H PRN PRN Reason: Indigestion Last Admin: 08/15/19 11:48 Dose: 30 ml Alprazolam (Xanax) 0.25 mg PO BIDPRN PRN PRN Reason: Anxiety Aspirin (Aspirin Chewable) 81 mg PO DAILY [facility] Last Admin: 08/16/19 09:02 Dose: 81 mg Atorvastatin Calcium (Lipitor) 10 mg PO QPM [facility] Last Admin: 08/15/19 20:28 Dose: 10 mg Bisacodyl (Dulcolax) 10 mg PO Q12H PRN PRN Reason: Constipation Last Admin: 08/15/19 08:02 Dose: 10 mg Bisacodyl (Dulcolax) 10 mg [place] Q12H PRN PRN Reason: Constipation Famotidine (Pepcid) 20 mg PO BID [facility] Last Admin: 08/16/19 09:02 Dose: 20 mg Fentanyl (Sublimaze) 25 mcg SLOW IVP Q4H PRN PRN Reason: Severe Pain (7-10) Last Admin: 08/14/19 13:57 Dose: 25 mcg Furosemide (Lasix) 40 mg SLOW IVP DAILY [facility] Last Admin: 05/03/20 09:02 Dose: 40 mg Guaifenesin/Dextromethorphan (Robitussin Dm) 15 ml PO Q4H PRN PRN Reason: Cough Lisinopril (Zestril) 5 mg PO BID [facility] Last Admin: 08/16/19 09:01 Dose: 5 mg Magnesium Hydroxide (Milk Of Magnesium) 30 ml PO DAILYPRN PRN PRN Reason: Constipation Melatonin (Melatonin) 3 mg PO HSPRN PRN PRN Reason: Insomnia Last Admin: 08/15/19 20:34 Dose: 3 mg Metoprolol Tartrate (Lopressor) 25 mg PO BID [facility] Last Admin: 08/16/19 09:02 Dose: 25 mg Mineral Oil (Fleet Mineral Oil) 133 ml [place] DAILYPRN PRN PRN Reason: Constipation Nitroglycerin (Nitrostat) 0.4 mg SL Q5MIN PRN PRN Reason: Chest Pain Ondansetron HCl (Zofran) 4 mg IVP Q6H PRN PRN Reason: Nausea/Vomiting Last Admin: 08/15/19 08:02 Dose: 4 mg Polyethylene Glycol (Miralax) 17 gm PO DAILY [facility] Last Admin: 08/16/19 09:02 Dose: Not Given Potassium Chloride (K-Dur) 20 meq PO QAM-WM [facility] Last Admin: 08/16/19 09:01 Dose: 20 meq Sodium Chloride (Flush - Normal Saline) 10 ml IVF Q12HR [facility] Last Admin: 08/16/19 09:03 Dose: 10 ml Sodium Chloride (Flush - Normal Saline) 10 ml IVF PRN PRN PRN Reason: Saline Flush Tramadol HCl (Ultram) 50 mg PO Q6H PRN PRN Reason: Moderate Pain (4-6) Last Admin: 08/16/19 11:34 Dose: 50 mg Vital Signs & Weight: Vital Signs Temp Pulse Pulse Pulse Resp BP BP 08/16/19 11:45 66 64 110/54 L 128/58 L 08/16/19 11:37 98.3 F 60 18 08/16/19 08:40 98.5 F 67 18 08/16/19 04:00 98.3 F 60 18 BP BP Pulse Ox 08/16/19 11:45 08/16/19 11:37 111/54 L 94 L 08/16/19 08:40 125/58 L 94 L 08/16/19 04:00 109/53 L 96 Weight 121 lb 3.2 oz - Quality Measures Condition: Coronary Artery Disease CV meds: Beta Ever: No (CHB post op), ASA: Yes - Physical Exam General: alert & oriented x3 HEENT: mucus membranes moist Neck: supple neck Cardiac: regular rate and rhythm Lungs: clear to auscultation Neuro: grossly intact Abdomen: active bowel sounds Extremities: no edema Skin: clear Musculoskeletal: no pain - Labs Result Diagrams: 08/12/19 04:10 08/12/19 04:10 Troponin/CKMB CK-MB (CK-2) 163.7 ng/mL (0-6.6) H* 08/09/19 11:36 Troponin I 22.121 ng/mL (< 0.028) H* 08/09/19 16:50 - Telemetry Sinus rhythms and dysrhythmias: sinus rhythm - Assessment/Plan Assessment/Plan: 1. CADS, s/p inferior [place], s/p CABG x2 with DEVI-> LAD, SVG-> Intermediate 2. CHB post op, resolved. 3. HTN 4. Non sustained VT 7 beats. 5. Post op afib PLAN: - Currently in sinus HR in the 60's to 70's. - BB for NSVT and post op afib, no episodes of bradycardia since starting BB. - Continue to monitor. - PT as tolerated.
--- NOTE | 2019-08-16 19:04 | PRG ---
DATE OF SERVICE: 08/16/2019 SUBJECTIVE: Nadia Whitaker is ambulated this morning. She is in no distress. She had no complaints. She says her chest discomfort is better. OBJECTIVE: VITAL SIGNS: She is afebrile, heart rate 65, respiratory rate is 18, oximetry is 98% on room air, blood pressure 135/59. Intake and outputs, negative 315. LUNGS: Clear. HEART: Regular rhythm. ABDOMEN: Soft. LABORATORY STUDIES: She has no new lab. IMPRESSION: 1. Status post coronary artery bypass grafting. 2. Tachy-sarah syndrome, clinically stable. We will sign off. Job ID: [id number]
[2019-08-16] MEDS: Atorvastatin Calcium 10 MG TAB PO SCH (21:51)
[2019-08-17] MEDS: Aspirin Chewable 81 MG TAB PO SCH (09:34)
[2019-08-17] MEDS: Famotidine 20 MG TAB PO SCH (09:34)
[2019-08-17] MEDS: Metoprolol Tartrate 25 MG TAB PO SCH (09:34)
[2019-08-17] MEDS: Lisinopril 5 MG TAB PO SCH (09:34)
[2019-08-17] MEDS: Furosemide 40 MG/4 ML VIAL SLOW IVP SCH (09:34)
[2019-08-17] MEDS: Potassium Chloride 20 MEQ TAB PO SCH (09:34)
[2019-08-17] MEDS: Polyethylene Glycol 3350 17 GM Packet PO SCH (09:35)
[2019-08-17 11:05] VITALS: BP 146/64; TEMP 98.2
--- NOTE | 2019-08-17 11:25 | PDOC.CPN ---
- Subjective Date: 08/17/19 Time: 11:31 Interval history: The pt seen and examined. No overnight events. No cardiac complaints. - Objective Allergies/Adverse Reactions: Allergies Allergy/AdvReac Type Severity Reaction Status Date / Time gabapentin Allergy Verified 08/09/19 18:45 pregabalin [From Lyrica] Allergy Verified 07/04/19 02:44 Visit Medications: Current Medications Acetaminophen (Tylenol) 650 mg PO Q6H PRN PRN Reason: Headache/Fever or Pain Last Admin: 08/15/19 20:34 Dose: 650 mg Al Hydroxide/Mg Hydroxide (Maalox) 30 ml PO Q4H PRN PRN Reason: Indigestion Last Admin: 08/15/19 11:48 Dose: 30 ml Alprazolam (Xanax) 0.25 mg PO BIDPRN PRN PRN Reason: Anxiety Aspirin (Aspirin Chewable) 81 mg PO DAILY [facility] Last Admin: 08/17/19 09:34 Dose: 81 mg Atorvastatin Calcium (Lipitor) 10 mg PO QPM [facility] Last Admin: 08/16/19 21:51 Dose: 10 mg Bisacodyl (Dulcolax) 10 mg PO Q12H PRN PRN Reason: Constipation Last Admin: 08/15/19 08:02 Dose: 10 mg Bisacodyl (Dulcolax) 10 mg [place] Q12H PRN PRN Reason: Constipation Famotidine (Pepcid) 20 mg PO BID [facility] Last Admin: 08/17/19 09:34 Dose: 20 mg Fentanyl (Sublimaze) 25 mcg SLOW IVP Q4H PRN PRN Reason: Severe Pain (7-10) Last Admin: 08/14/19 13:57 Dose: 25 mcg Furosemide (Lasix) 40 mg SLOW IVP DAILY [facility] Last Admin: 08/17/19 09:34 Dose: 40 mg Guaifenesin/Dextromethorphan (Robitussin Dm) 15 ml PO Q4H PRN PRN Reason: Cough Last Admin: 08/16/19 21:52 Dose: 15 ml Lisinopril (Zestril) 5 mg PO BID [facility] Last Admin: 08/17/19 09:34 Dose: 5 mg Magnesium Hydroxide (Milk Of Magnesium) 30 ml PO DAILYPRN PRN PRN Reason: Constipation Melatonin (Melatonin) 3 mg PO HSPRN PRN PRN Reason: Insomnia Last Admin: 08/15/19 20:34 Dose: 3 mg Metoprolol Tartrate (Lopressor) 25 mg PO BID [facility] Last Admin: 08/17/19 09:34 Dose: 25 mg Mineral Oil (Fleet Mineral Oil) 133 ml [place] DAILYPRN PRN PRN Reason: Constipation Nitroglycerin (Nitrostat) 0.4 mg SL Q5MIN PRN PRN Reason: Chest Pain Ondansetron HCl (Zofran) 4 mg IVP Q6H PRN PRN Reason: Nausea/Vomiting Last Admin: 08/15/19 08:02 Dose: 4 mg Polyethylene Glycol (Miralax) 17 gm PO DAILY [facility] Last Admin: 08/17/19 09:35 Dose: Not Given Potassium Chloride (K-Dur) 20 meq PO QAM-WM [facility] Last Admin: 08/17/19 09:34 Dose: 20 meq Sodium Chloride (Flush - Normal Saline) 10 ml IVF Q12HR [facility] Last Admin: 08/17/19 09:35 Dose: 10 ml Sodium Chloride (Flush - Normal Saline) 10 ml IVF PRN PRN PRN Reason: Saline Flush Tramadol HCl (Ultram) 50 mg PO Q6H PRN PRN Reason: Moderate Pain (4-6) Last Admin: 08/16/19 21:51 Dose: 50 mg Vital Signs & Weight: Vital Signs Temp Pulse Resp BP Pulse Ox 08/17/19 11:04 98.2 F 58 L 16 146/64 H 93 L 08/17/19 07:30 98.4 F 62 16 163/72 H 93 L 08/17/19 04:07 98.8 F 62 18 166/74 H 93 L 08/17/19 00:45 98 08/16/19 23:31 65 124/58 L Weight 124 lb 8 oz - Quality Measures Condition: Coronary Artery Disease CV meds: Beta Ever: No (CHB post op), ASA: Yes - Physical Exam General: alert & oriented x3 HEENT: mucus membranes moist Neck: supple neck Cardiac: regular rate and rhythm, S1/S2 Lungs: clear to auscultation Neuro: cranial nerve 2-12 intact Extremities: no edema - Labs Result Diagrams: 08/12/19 04:10 08/12/19 04:10 Troponin/CKMB CK-MB (CK-2) 163.7 ng/mL (0-6.6) H* 08/09/19 11:36 Troponin I 22.121 ng/mL (< 0.028) H* 08/09/19 16:50 - Telemetry Sinus rhythms and dysrhythmias: sinus rhythm - Assessment/Plan Assessment/Plan: 1. CADS, s/p inferior [place], s/p CABG x2 with DEVI-> LAD, SVG-> Intermediate - Stable; on Lisinopril, Metoprolol, ASA and Statin; 2. CHB post op. - Maintaining NSR at this time with HR 60s. No episodes of bradycardia since starting BB. Hx of multiple episodes of dizziness and s/p syncopal episodes. 2 wk EVR will be mailed to the pt's daughter's address. 3. HTN: stable. 4. Non sustained VT 7 beats. 5. Post op afib x 2 episodes on 08/14/2019 - On BBlocker and ASA. MAR reviewed * Echo on 08/09/2019 with EF 60-65%, grade I dd, mild-mod MR, mild TR and OR, and mild PE * Per the pt, she will stay with her daughter who lives in [place]. * Will f/u with Dr Clark' office in 2 wks
== END 2019-08-17 12:45 | disposition home or self-care (01) | DRG 234 ==
LOC: ERS 11:19 → CCU 13:46 → 2NO 08-12 12:19
PROVIDERS: ADMIT Family Medicine; ATTEND Family Medicine
PROC: 4A023N7 Measurement of Cardiac Sampling and Pressure, Left Heart, Percutaneous Approach (ICD-10-PCS; 2019-08-09)
PROC: B2151ZZ Fluoroscopy of Left Heart using Low Osmolar Contrast (ICD-10-PCS; 2019-08-09)
PROC: B2111ZZ Fluoroscopy of Multiple Coronary Arteries using Low Osmolar Contrast (ICD-10-PCS; 2019-08-09)
PROC: 02100Z9 Bypass Coronary Artery, One Artery from Left Internal Mammary, Open Approach (ICD-10-PCS; principal; 2019-08-10)
PROC: 0WJC0ZZ Inspection of Mediastinum, Open Approach (ICD-10-PCS; 2019-08-10)
PROC: 021009W Bypass Coronary Artery, One Artery from Aorta with Autologous Venous Tissue, Open Approach (ICD-10-PCS; 2019-08-10)
PROC: 06BQ4ZZ Excision of Left Saphenous Vein, Percutaneous Endoscopic Approach (ICD-10-PCS; 2019-08-10)
PROC: 5A1223Z Performance of Cardiac Pacing, Continuous (ICD-10-PCS; 2019-08-10)
PROC: 5A1221Z Performance of Cardiac Output, Continuous (ICD-10-PCS; 2019-08-10)
PROC: B24BZZ4 Ultrasonography of Heart with Aorta, Transesophageal (ICD-10-PCS; 2019-08-10)
PROC: 3E033XZ Introduction of Vasopressor into Peripheral Vein, Percutaneous Approach (ICD-10-PCS; 2019-08-10)
PROC: 02JA0ZZ Inspection of Heart, Open Approach (ICD-10-PCS; 2019-08-10)
DX: I21.19 ST elevation (STEMI) myocardial infarction involving other coronary artery of inferior wall (principal); I44.2 Atrioventricular block, complete; I47.2 Ventricular tachycardia; I48.91 Unspecified atrial fibrillation; I49.5 Sick sinus syndrome; I10 Essential (primary) hypertension; F32.9 Major depressive disorder, single episode, unspecified; I25.10 Atherosclerotic heart disease of native coronary artery without angina pectoris; Z88.8 Allergy status to other drugs, medicaments and biological substances; Z79.899 Other long term (current) drug therapy; Z90.710 Acquired absence of both cervix and uterus; Z90.49 Acquired absence of other specified parts of digestive tract
CPT/HCPCS: 36415; 36416; 36430; 71045; 80048; 80053; 80061; 82553; 82805; 83880; 84484; 85025; 85610; 85730; 86850; 86900; 86901; 93005; 93010; 93306; 93458; 93798; 94002; 94150; 94760; 96365; 96374; 99152; 99153; C1769; J0171; J0461; J0690; J1100; J1265; J1642; J1644; J1815; J1885; J1940; J2001; J2250; J2270; J2405; J2440; J2704; J2720; J3010; J3370; J3475; J3480; J3490; J7070; P9045; Q9967; S0017; S0028

== ENCOUNTER 2021-01-18 17:51 | Emergency (ER) | payer MEDICARE ==
[2021-01-18 19:25] LABS: Bilirubin Negative (Negative); Blood, Urine Negative (Negative); Clarity Clear (Clear); Glucose, Urine (Dipstick) Normal (Negative); Ketone, Urine Negative (Negative); Leukocyte Negative Leu/uL (Negative); Nitrite Negative (Negative); Protein, Urine (Dipstick) Negative (Neg-Trace); Specific Gravity, Urine 1.012 (1.002-1.036); Urobilinogen Normal mg/dL (Less than 2)
[2021-01-18 19:25] LABS: #Eosinphils 0.1 thou/uL (0.0-0.7); #Lymphocytes 0.4 thou/uL (1.20-3.40); #Monocytes 0.4 thou/uL (0.11-0.59); #Neutrophils 9.4 thou/uL (1.40-6.50); %Eosinophils 0.8 % (0.0-10.0); %Lymphocytes 4.2 % (21.0-51.0); Hemoglobin 14.3 g/dL (12.0-16.0); Mean Corpuscular HGB CONC 35.2 g/dL (32.0-36.0); Mean Platelet Volume 8.7 fL (7.4-10.4); Platelet Count 143 thou/uL (130-400); RBC Distribution Width 12.5 % (11.5-14.5); Red Blood Cell (RBC) Count 4.62 mill/uL (4.20-5.40); White Blood Cell (WBC) Count 10.3 thou/uL (4.8-10.8)
[2021-01-18 19:44] LABS: ALT (SGPT) 18 U/L (8-55); AST (SGOT) 28 U/L (5-34); Albumin 4.2 g/dL (3.4-4.8); Alkaline Phosphatase 70 U/L (40-110); Anion Gap 14 mmol/L (10-20); BUN (Urea Nitrogen) 22 mg/dL (9.8-20.1); Bilirubin, Total 0.6 mg/dL (0.2-1.2); Calc. Creatinine Clearance 0 mL/min (70-130); Calcium 9.6 mg/dL (7.8-10.44); Carbon Dioxide 26 mmol/L (23-31); Chloride 104 mmol/L (98-107); Globulin 2.8 g/dL (2.4-3.5); Glucose 132 mg/dL (83-110); Sodium 140 mmol/L (136-145)
== END 2021-01-18 20:00 | disposition home or self-care (01) ==
LOC: ERS 17:51
DX: R50.9 Fever, unspecified (principal); T50.B95A Adverse effect of other viral vaccines, initial encounter; I10 Essential (primary) hypertension; E78.00 Pure hypercholesterolemia, unspecified; E78.5 Hyperlipidemia, unspecified; Z87.891 Personal history of nicotine dependence
CPT/HCPCS: 36415; 71045; 80053; 81003; 83605; 85025; 87040

== ENCOUNTER 2021-04-24 09:39 | Outpatient (CLI) | payer MEDICARE | END 2021-04-24 09:40 | disposition home or self-care (01) | LOC: BICMAMMO 09:39 | PROVIDERS: ATTEND Family Medicine | DX: Z12.31 Encounter for screening mammogram for malignant neoplasm of breast (principal); Z13.820 Encounter for screening for osteoporosis; Z78.0 Asymptomatic menopausal state; M81.0 Age-related osteoporosis without current pathological fracture; M85.89 Other specified disorders of bone density and structure, multiple sites | CPT/HCPCS: 77063; 77067; 77080 ==

== ENCOUNTER 2021-12-25 12:40 | Outpatient (CLI) | payer MEDICARE | END 2021-12-25 12:41 | disposition home or self-care (01) | LOC: TBSIIMAG 12:40 | PROVIDERS: ATTEND Specialist | DX: M48.062 Spinal stenosis, lumbar region with neurogenic claudication (principal); M51.36 Other intervertebral disc degeneration, lumbar region; M51.37 Other intervertebral disc degeneration, lumbosacral region | CPT/HCPCS: 72148 ==

== ENCOUNTER 2022-04-03 17:13 | Inpatient (IN) | payer MEDICARE ==
[2022-04-03] MEDS ORDERED: Ondansetron PF 4 MG/2 ML Vial ONE (17:52)
[2022-04-03 18:05] LABS: #Eosinphils 0.2 thou/uL (0.0-0.7); #Lymphocytes 2.1 thou/uL (1.20-3.40); #Monocytes 0.7 thou/uL (0.11-0.59); #Neutrophils 5.2 thou/uL (1.40-6.50); %Eosinophils 2.3 % (0.0-10.0); %Lymphocytes 25.5 % (21.0-51.0); %Monocytes 8.6 % (0.0-10.0); %Neutrophils 63.7 % (42.0-75.0); Hemoglobin 14.1 g/dL (12.0-16.0); Mean Corpuscular HGB CONC 33.6 g/dL (32.0-36.0); Mean Corpuscular Hemoglobin 29.9 pg (27.0-31.0); Mean Corpuscular Volume 89.3 fl (78.0-98.0); Mean Platelet Volume 8.1 fL (7.4-10.4); Platelet Count 257 10x3/uL (130-400); RBC Distribution Width 12.7 % (11.5-14.5); Red Blood Cell (RBC) Count 4.72 mill/uL (4.20-5.40); White Blood Cell (WBC) Count 8.2 10x3/uL (4.8-10.8)
[2022-04-03 18:30] LABS: ALT (SGPT) 16 U/L (8-55); AST (SGOT) 34 U/L (5-34); Albumin 3.5 g/dL (3.4-4.8); Alkaline Phosphatase 70 U/L (40-110); Anion Gap 13 mmol/L (10-20); BUN (Urea Nitrogen) 19 mg/dL (9.8-20.1); Bilirubin, Total 0.5 mg/dL (0.2-1.2); Calc. Creatinine Clearance 0 mL/min (70-130); Calcium 9.1 mg/dL (7.8-10.44); Carbon Dioxide 24 mmol/L (23-31); Chloride 100 mmol/L (98-107); Estimated GFR 79; Globulin 3.2 g/dL (2.4-3.5); Glucose 109 mg/dL (83-110); Lipase 26 U/L (8-78); Magnesium 1.9 mg/dL (1.6-2.6); Potassium 4.3 mmol/L (3.5-5.1); Protein, Total 6.7 g/dL (5.8-8.1); Sodium 133 mmol/L (136-145)
[2022-04-03 19:25] LABS: Bacteria/HPF None Seen HPF (None Seen); Bilirubin Negative (Negative); Blood, Urine Negative (Negative); Clarity Turbid (Clear); Glucose, Urine (Dipstick) Normal (Negative); Ketone, Urine Negative (Negative); Leukocyte 250 Leu/uL (Negative); Nitrite Negative (Negative); Protein, Urine (Dipstick) Negative (Neg-Trace); RBC/HPF 0-3 HPF (0-3); Specific Gravity, Urine 1.009 (1.002-1.036); Squamous Epithelial 0-3 HPF (0-3); Urobilinogen Normal mg/dL (Less than 2); WBC/HPF Greater than 50 HPF (0-3); pH, Urine 6.5 (5.0-9.0)
[2022-04-03] MEDS ORDERED: cefTRIAXone\\ROCEPHIN 1 GM VIAL ONE (20:06)
[2022-04-03] MEDS ORDERED: Acetaminophen 325 MG TAB PO PRN (21:57)
[2022-04-03] MEDS ORDERED: hydrALAZINE 20 MG/ML VIAL SLOW IVP PRN (22:04)
[2022-04-03] MEDS ORDERED: Sodium Chloride 0.9% 1,000 ML IV SCH (22:15)
[2022-04-04 03:27] VITALS: BMI 19.5
[2022-04-04 06:01] LABS: #Eosinphils 0.2 thou/uL (0.0-0.7); #Lymphocytes 1.6 thou/uL (1.20-3.40); #Monocytes 0.6 thou/uL (0.11-0.59); #Neutrophils 5.2 thou/uL (1.40-6.50); %Basophils 0.3 % (0.0-1.0); %Eosinophils 3.1 % (0.0-10.0); %Lymphocytes 20.3 % (21.0-51.0); %Monocytes 8.2 % (0.0-10.0); Hemoglobin 13.4 g/dL (12.0-16.0); Mean Corpuscular HGB CONC 32.6 g/dL (32.0-36.0); Mean Corpuscular Hemoglobin 29.6 pg (27.0-31.0); Mean Corpuscular Volume 90.9 fl (78.0-98.0); Mean Platelet Volume 8.3 fL (7.4-10.4); Platelet Count 240 10x3/uL (130-400); RBC Distribution Width 12.8 % (11.5-14.5); Red Blood Cell (RBC) Count 4.52 mill/uL (4.20-5.40); White Blood Cell (WBC) Count 7.6 10x3/uL (4.8-10.8)
[2022-04-04 06:20] LABS: Anion Gap 13 mmol/L (10-20); BUN (Urea Nitrogen) 10 mg/dL (9.8-20.1); Calc. Creatinine Clearance 52 mL/min (70-130); Calcium 8.5 mg/dL (7.8-10.44); Carbon Dioxide 23 mmol/L (23-31); Chloride 107 mmol/L (98-107); Estimated GFR 88; Glucose 86 mg/dL (83-110); Potassium 3.5 mmol/L (3.5-5.1); Sodium 139 mmol/L (136-145)
[2022-04-04] MEDS: Metoprolol Tartrate 25 MG TAB PO SCH ×2 (09:22→21:17)
[2022-04-04] MEDS: Amlodipine 5 MG TAB PO SCH ×2 (09:22→21:16)
[2022-04-04] MEDS: Enoxaparin Sodium 30 MG/0.3 ML SYRINGE SC SCH (09:24)
[2022-04-04] MEDS ORDERED: guaiFENesin 200 MG TAB PO PRN (09:39)
[2022-04-04] MEDS ORDERED: Loratadine 10 MG TAB PO SCH (09:45)
[2022-04-04] MEDS ORDERED: Benzonatate 100 MG CAP PO SCH (09:45)
[2022-04-04] MEDS: HYDROcodone/Acetaminophen 5/325 mg Tablet PO PRN ×2 (10:19→17:41)
[2022-04-04] MEDS: Benzonatate 100 MG CAP PO SCH ×2 (15:29→21:16)
[2022-04-04] MEDS: Atorvastatin Calcium 20 MG TAB PO SCH (21:16)
[2022-04-04] MEDS: cefTRIAXone\\ROCEPHIN 1 GM in Sodium Chloride 0.9% 100 ML IVPB SCH (21:17)
[2022-04-05 07:32] LABS: Anion Gap 12 mmol/L (10-20); BUN (Urea Nitrogen) 9 mg/dL (9.8-20.1); Calc. Creatinine Clearance 47 mL/min (70-130); Calcium 9.1 mg/dL (7.8-10.44); Carbon Dioxide 23 mmol/L (23-31); Chloride 104 mmol/L (98-107); Estimated GFR 86; Glucose 109 mg/dL (83-110); Potassium 3.4 mmol/L (3.5-5.1); Sodium 136 mmol/L (136-145)
[2022-04-05] MEDS: Amlodipine 5 MG TAB PO SCH ×2 (09:35→22:06)
[2022-04-05] MEDS: Potassium Chloride 20 MEQ TAB PO SCH ×2 (09:35→13:51)
[2022-04-05] MEDS: Aspirin Chewable 81 MG TAB PO SCH (09:35)
[2022-04-05] MEDS: Benzonatate 100 MG CAP PO SCH ×3 (09:36→22:06)
[2022-04-05] MEDS: Enoxaparin Sodium 30 MG/0.3 ML SYRINGE SC SCH (09:36)
[2022-04-05] MEDS: Loratadine 10 MG TAB PO SCH (09:36)
[2022-04-05] MEDS: Metoprolol Tartrate 25 MG TAB PO SCH ×2 (09:36→22:06)
[2022-04-05] MEDS: cefTRIAXone\\ROCEPHIN 1 GM in Sodium Chloride 0.9% 100 ML IVPB SCH (22:06)
[2022-04-05] MEDS: Atorvastatin Calcium 20 MG TAB PO SCH (22:07)
[2022-04-06 08:28] VITALS: BP 149/79; TEMP 98.7
[2022-04-06] MEDS ORDERED: Enoxaparin Sodium 40 MG/0.4 ML SYRINGE SC SCH (09:00)
[2022-04-06] MEDS ORDERED: Cefdinir 300 MG CAP PO SCH (09:00)
[2022-04-06] MEDS: Aspirin Chewable 81 MG TAB PO SCH (09:14)
[2022-04-06] MEDS: Loratadine 10 MG TAB PO SCH (09:15)
[2022-04-06] MEDS: Benzonatate 100 MG CAP PO SCH (09:15)
[2022-04-06] MEDS: Metoprolol Tartrate 25 MG TAB PO SCH (09:15)
[2022-04-06] MEDS: Amlodipine 5 MG TAB PO SCH (09:15)
== END 2022-04-06 11:46 | disposition home health service (06) | DRG 690 ==
LOC: ERS 17:13 → SURG A 22:17 → OBSVTOIN 04-04 09:42
PROVIDERS: ADMIT Internal Medicine; ATTEND Internal Medicine
DX: N30.00 Acute cystitis without hematuria (principal); J06.9 Acute upper respiratory infection, unspecified; Z20.822 Contact with and (suspected) exposure to COVID-19; Z66 Do not resuscitate; B97.4 Respiratory syncytial virus as the cause of diseases classified elsewhere; R19.7 Diarrhea, unspecified; B96.20 Unspecified Escherichia coli [E. coli] as the cause of diseases classified elsewhere; I10 Essential (primary) hypertension; E78.00 Pure hypercholesterolemia, unspecified; M19.049 Primary osteoarthritis, unspecified hand; G89.29 Other chronic pain; M54.9 Dorsalgia, unspecified; K21.9 Gastro-esophageal reflux disease without esophagitis; Z88.8 Allergy status to other drugs, medicaments and biological substances; Z79.899 Other long term (current) drug therapy; Z79.82 Long term (current) use of aspirin; Z95.1 Presence of aortocoronary bypass graft
CPT/HCPCS: 36415; 71045; 80048; 80053; 81003; 81015; 83605; 83690; 83735; 84443; 84484; 85025; 87040; 87077; 87086; 87186; 87324; 87449; 87633; 87798; 87804; 93005; 96361; 96374; 96375; J0696; J1650; J2405; J3490; J7050; U0003; U0005

== ENCOUNTER 2022-06-07 13:39 | Outpatient (CLI) | payer MEDICARE | END 2022-06-07 13:40 | disposition home or self-care (01) | LOC: BICMAMMO 13:39 | PROVIDERS: ATTEND Family Medicine | DX: Z12.31 Encounter for screening mammogram for malignant neoplasm of breast (principal) | CPT/HCPCS: 77063; 77067 ==

== ENCOUNTER 2023-01-25 09:49 | Outpatient (CLI) | payer MEDICARE ==
[2023-01-24 12:39] VITALS: BMI 20.4
[2023-01-25 11:16] LABS: #Eosinphils 0.1 thou/uL (0.0-0.7); #Monocytes 0.6 thou/uL (0.11-0.59); #Neutrophils 4.2 thou/uL (1.40-6.50); %Basophils 0.5 % (0.0-1.0); %Eosinophils 1.5 % (0.0-10.0); %Lymphocytes 25.4 % (21.0-51.0); %Monocytes 8.9 % (0.0-10.0); %Neutrophils 63.4 % (42.0-75.0); Hematocrit 41.7 % (36.0-47.0); Hemoglobin 13.4 g/dL (12.0-16.0); Mean Corpuscular HGB CONC 32.1 g/dL (32.0-36.0); Mean Corpuscular Hemoglobin 29.3 pg (27.0-31.0); Mean Corpuscular Volume 91.2 fl (78.0-98.0); Mean Platelet Volume 10.9 fL (7.4-10.4); Platelet Count 180 10x3/uL (130-400); RBC Distribution Width 14.6 % (11.5-14.5); Red Blood Cell (RBC) Count 4.57 mill/uL (4.20-5.40); White Blood Cell (WBC) Count 6.7 10x3/uL (4.8-10.8)
[2023-01-25 11:42] LABS: Anion Gap 12 mmol/L (10-20); BUN (Urea Nitrogen) 16 mg/dL (9.8-20.1); Calc. Creatinine Clearance 45 mL/min (70-130); Carbon Dioxide 25 mmol/L (23-31); Chloride 106 mmol/L (98-107); Estimated GFR 82; Glucose 100 mg/dL (83-110); Potassium 4.1 mmol/L (3.5-5.1); Sodium 139 mmol/L (136-145)
[2023-01-25] MEDS ORDERED: Lidocaine 1% PF 5 ML VIAL ONE (13:00)
[2023-01-25] MEDS ORDERED: Ondansetron PF 4 MG/2 ML Vial ONE (13:00)
[2023-01-25] MEDS ORDERED: ePHEDrine 50 MG/ML VIAL ONE (13:00)
[2023-01-25] MEDS ORDERED: PROPOFOL 200 MG/20 ML VIAL ONE (13:00)
[2023-01-25] MEDS ORDERED: PHENYLEPHRINE-NS 100 MCG/ML 10 ML SYRINGE ONE (13:00)
== END 2023-01-25 15:00 | disposition home or self-care (01) ==
LOC: MRI 09:49
PROVIDERS: ATTEND Anesthesiology Pain Medicine
DX: M47.22 Other spondylosis with radiculopathy, cervical region (principal); M47.26 Other spondylosis with radiculopathy, lumbar region; M41.9 Scoliosis, unspecified; M47.815 Spondylosis without myelopathy or radiculopathy, thoracolumbar region; M47.813 Spondylosis without myelopathy or radiculopathy, cervicothoracic region; M47.817 Spondylosis without myelopathy or radiculopathy, lumbosacral region
CPT/HCPCS: 72052; 72120; 72141; 72148; 80048; 85025; 93005; 93010; J2405; J2704; J3490

== ENCOUNTER 2023-09-15 21:44 | Observation (INO) | payer MEDICARE ==
[2023-09-15] MEDS ORDERED: Acetaminophen 500 MG TAB ONE (22:06)
[2023-09-15 22:48] LABS: #Basophils 0.03 10x3/uL (0.0-0.2); %Basophils 0.5 % (0.0-1.0); %Eosinophils 1.3 % (0.0-10.0); %Monocytes 8.8 % (0.0-10.0); %Neutrophils 60.9 % (42.0-75.0); Hematocrit 38.5 % (36.0-47.0); Hemoglobin 12.7 g/dL (12.0-16.0); Mean Corpuscular Hemoglobin 30.8 pg (27.0-31.0); Mean Corpuscular Volume 93.4 fL (78.0-98.0); Mean Platelet Volume 10.1 fL (7.4-10.4); Platelet Count 169 10x3/uL (130-400); RBC Distribution Width 14.5 % (11.5-14.5); Red Blood Cell (RBC) Count 4.12 mill/uL (4.20-5.40)
[2023-09-15 23:03] LABS: ALT (SGPT) 13 U/L (8-55); AST (SGOT) 25 U/L (5-34); Albumin 3.5 g/dL (3.4-4.8); Alkaline Phosphatase 55 U/L (40-110); Anion Gap 15 mmol/L (10-20); BUN (Urea Nitrogen) 34 mg/dL (9.8-20.1); Bilirubin, Total 0.5 mg/dL (0.2-1.2); Calc. Creatinine Clearance 0 mL/min (70-130); Calcium 9.2 mg/dL (7.8-10.44); Carbon Dioxide 23 mmol/L (23-31); Chloride 104 mmol/L (98-107); Estimated GFR 70; Globulin 2.4 g/dL (2.4-3.5); Glucose 89 mg/dL (83-110); Potassium 4.2 mmol/L (3.5-5.1); Protein, Total 5.9 g/dL (5.8-8.1); Sodium 138 mmol/L (136-145)
[2023-09-15 23:07] LABS: Troponin I 0.013 ng/mL (< 0.028)
[2023-09-16] MEDS ORDERED: Morphine 4 MG/ML VIAL ONE (00:16)
[2023-09-16 01:23] VITALS: BMI 22.6
[2023-09-16] MEDS ORDERED: Ondansetron ODT 4 MG TAB PO PRN (02:50)
[2023-09-16] MEDS ORDERED: Acetaminophen 650 MG Suppository PR PRN (02:50)
[2023-09-16] MEDS ORDERED: Ondansetron PF 4 MG/2 ML Vial IVP PRN (02:50)
[2023-09-16] MEDS: Acetaminophen 325 MG TAB PO PRN (04:57)
[2023-09-16 05:34] LABS: #Basophils Less than 0.03 10x3/uL (0.0-0.2); %Basophils 0.4 % (0.0-1.0); %Eosinophils 1.8 % (0.0-10.0); %Lymphocytes 35.4 % (21.0-51.0); %Monocytes 9.5 % (0.0-10.0); %Neutrophils 52.4 % (42.0-75.0); Hematocrit 38.6 % (36.0-47.0); Hemoglobin 12.4 g/dL (12.0-16.0); Mean Corpuscular HGB CONC 32.1 g/dL (32.0-36.0); Mean Corpuscular Hemoglobin 30.5 pg (27.0-31.0); Mean Corpuscular Volume 94.8 fL (78.0-98.0); Mean Platelet Volume 10.7 fL (7.4-10.4); Platelet Count 163 10x3/uL (130-400); RBC Distribution Width 14.6 % (11.5-14.5); Red Blood Cell (RBC) Count 4.07 mill/uL (4.20-5.40)
[2023-09-16 05:58] LABS: Anion Gap 13 mmol/L (10-20); BUN (Urea Nitrogen) 30 mg/dL (9.8-20.1); Calc. Creatinine Clearance 41 mL/min (70-130); Calcium 9.1 mg/dL (7.8-10.44); Carbon Dioxide 25 mmol/L (23-31); Chloride 103 mmol/L (98-107); Estimated GFR 70; Glucose 93 mg/dL (83-110); Potassium 4.1 mmol/L (3.5-5.1); Sodium 137 mmol/L (136-145)
[2023-09-16 08:28] LABS: Troponin I 0.019 ng/mL (< 0.028)
[2023-09-16] MEDS: Metoprolol Tartrate 25 MG TAB PO SCH (10:19)
[2023-09-16] MEDS: Ezetimibe 10 MG TAB PO SCH (10:20)
[2023-09-16] MEDS: Famotidine 20 MG TAB PO SCH (10:20)
[2023-09-16] MEDS: Furosemide 20 MG TAB PO SCH (10:20)
[2023-09-16] MEDS: Amlodipine 5 MG TAB PO SCH (10:21)
[2023-09-16] MEDS: Famotidine/PF 20 mg/2ml Vial SLOW IVP SCH (13:41)
[2023-09-16] MEDS: ALPRAZolam 0.25 MG TAB PO PRN (21:27)
[2023-09-16] MEDS: Atorvastatin Calcium 40 MG TAB PO SCH (21:27)
[2023-09-17] MEDS: Lidocaine 2% Viscous Solution 20 ML, Aluminum & Magnesium Hydroxide 30 ML, Donnatal Eli... SSW SCH (02:20)
[2023-09-17 13:30] VITALS: BP 148/68; TEMP 97.4
== END 2023-09-17 14:15 | disposition home or self-care (01) ==
LOC: ERS 21:44 → 2NO 23:59 → UNDOADMOB 09-16 00:04
PROVIDERS: ADMIT Student in an Organized Health Care Education/Training Program; ATTEND Family Medicine
DX: R07.9 Chest pain, unspecified (principal); I25.10 Atherosclerotic heart disease of native coronary artery without angina pectoris; I10 Essential (primary) hypertension; E78.5 Hyperlipidemia, unspecified; Z88.8 Allergy status to other drugs, medicaments and biological substances; Z79.899 Other long term (current) drug therapy; Z90.89 Acquired absence of other organs; Z90.49 Acquired absence of other specified parts of digestive tract; Z90.710 Acquired absence of both cervix and uterus
CPT/HCPCS: 71045; 80048; 80053; 84484 ×3; 85025 ×2; 85379; 93005 ×2; 96374; 97116; 99285; G0378 ×3; J2270; 36415; 93010

== ENCOUNTER 2025-02-22 09:54 | Emergency (ER) | payer MEDICARE ==
[2025-02-22] MEDS ORDERED: Acetaminophen 500 MG TAB ONE (11:17)
[2025-02-22] MEDS ORDERED: Ibuprofen 200 MG TAB ONE (14:05)
[2025-02-22 14:12] LABS: #Basophils 0.03 10x3/uL (0.0-0.2); #Eosinophils 0.12 10x3/uL (0.0-0.7); #Monocytes 0.75 10x3/uL (0.11-0.59); #Neutrophils 6.27 10x3/uL (1.40-6.50); %Basophils 0.3 % (0.0-1.0); %Eosinophils 1.3 % (0.0-10.0); %Lymphocytes 20.9 % (21.0-51.0); %Monocytes 8.2 % (0.0-10.0); %Neutrophils 68.9 % (42.0-75.0); Hematocrit 39.6 % (36.0-47.0); Hemoglobin 12.5 g/dL (12.0-16.0); Mean Corpuscular Hemoglobin 28.5 pg (27.0-31.0); Mean Corpuscular Volume 90.2 fL (78.0-98.0); Platelet Count 176 10x3/uL (130-400); Red Blood Cell (RBC) Count 4.39 mill/uL (4.20-5.40); White Blood Cell (WBC) Count 9.12 10x3/uL (4.8-10.8)
[2025-02-22 14:29] LABS: INR-International Normal Ratio 1.1; PTT 31.1 sec (22.9-36.1); Prothrombin Time 14.3 sec (12.0-14.7)
[2025-02-22 14:34] LABS: ALT (SGPT) 15 U/L (Less than 34); AST (SGOT) 28 U/L (11-34); Albumin 3.4 g/dL (3.1-4.5); Alkaline Phosphatase 77 U/L (40-110); Anion Gap 15 mmol/L (10-20); BUN (Urea Nitrogen) 20 mg/dL (9.8-20.1); Bilirubin, Total 0.3 mg/dL (0.3-1.2); Calc. Creatinine Clearance 0 mL/min (70-130); Calcium 8.5 mg/dL (7.8-10.44); Carbon Dioxide 22 mmol/L (23-31); Chloride 107 mmol/L (98-107); Globulin 2.8 g/dL (2.4-3.5); Glucose 109 mg/dL (83-110); Magnesium 1.9 mg/dL (1.6-2.6); Potassium 3.5 mmol/L (3.5-5.1); Sodium 140 mmol/L (136-145)
== END 2025-02-22 14:15 | disposition home or self-care (01) ==
LOC: ERS 09:54
DX: M25.512 Pain in left shoulder (principal); I10 Essential (primary) hypertension; E78.00 Pure hypercholesterolemia, unspecified; I25.10 Atherosclerotic heart disease of native coronary artery without angina pectoris; W01.0XXA Fall on same level from slipping, tripping and stumbling without subsequent striking against object, initial encounter; Y92.511 Restaurant or cafe as the place of occurrence of the external cause; Z87.891 Personal history of nicotine dependence
CPT/HCPCS: 36415; 70450; 71045; 72125; 72131; 72170; 80053; 83735; 85025; 85610; 85730; 93005